=== PATIENT | male | born 1950 | race Caucasian/White ===

== ENCOUNTER 2024-10-03 20:42 | Inpatient (IN) ==
[2024-10-03 21:23] LABS: Basophils # (auto) 0.02 K/uL (0.00-0.20); Basophils % (auto) 0.3 %; Eosinophils # (auto) 0.08 K/uL (0.00-0.50); Eosinophils % (auto) 1.2 %; Hematocrit (blood only) 43.8 % (42.0-52.0); Immature Granulocytes # (auto) 0.02 K/uL (0.01-0.20); Immature Granulocytes % (auto) 0.3 %; Lymphocytes # (auto) 2.56 K/uL (1.20-3.40); Lymphocytes % (auto) 38.2 %; Mean Corpuscular Hgb Conc 34.2 g/dL (32.0-36.0); Mean Corpuscular Volume 90.5 fL (80.0-100.0); Mean Platelet Volume 9.6 fL (9.4-12.4); Monocytes # (auto) 1.01 K/uL (0.11-0.59); Monocytes % (auto) 15.1 %; Neutrophils # (auto) 3.02 K/uL (1.40-6.50); Neutrophils % (auto) 44.9 %; Platelet Count 164 K/uL (130-400); RDW Coefficient of Variation 12.3 % (11.5-14.5); RDW Standard Deviation 40.5 fL (36.4-46.3); Red Blood Count 4.84 M/uL (4.70-6.10); White Blood Count 6.71 K/ul (4.8-10.8)
[2024-10-03] MEDS: OPTIRAY 320 125ml IV ONE (21:26)
[2024-10-03 21:28] LABS: iSTAT Creatinine 0.8 mg/dl (0.6-1.3); iSTAT Hemoglobin 15.6 g/dl (14.0-18.0); iSTAT Ionized Calcium 1.19 mmol/l (1.12-1.32); iSTAT Potassium 3.9 mmol/L (3.3-5.0)
[2024-10-03 21:37] LABS: Albumin Globulin Ratio 1.2 (0.9-2); Albumin Level 4.7 gm/dl (3.4-5.0); BUN Creatinine Ratio 23.9 (10-20); Bilirubin,Total 0.6 mg/dl (0.2-1.0); Calcium 9.2 mg/dl (8.6-10.3); Creatinine Clr Calc Pharmacy 82.5 ml/min; Globulin 3.8 gm/dl (2.5-4.0); Magnesium 2.1 mg/dl (1.7-2.4); Total Protein 8.5 gm/dl (6.0-8.3)
[2024-10-03 21:45] LABS: Troponin I High Sensitivity 37.1 pg/ml (0-20)
[2024-10-03 21:50] LABS: INR 0.9 (0.9-1.1); Partial Thromboplastin Ratio 0.9; Partial Thromboplastin Time 24 Seconds (21-31); Prothrombin Time 9.9 Seconds (9.0-12.0)
--- NOTE | 2024-10-03 21:55 | CT Scan Report ---
Exam(s): CT HEAD Without Contrast EXAM: CT Head Without Intravenous Contrast CLINICAL HISTORY: neuro deficit, acute stroke suspected. TECHNIQUE: Axial computed tomography images of the head/brain without intravenous contrast. CTDI is 37.12 mGy and DLP is 624.41 mGy-cm. Automated exposure control was utilized for the study. A dose lowering technique was utilized adhering to the principles of ALARA. COMPARISON: No relevant prior studies available. FINDINGS: Brain: There are a few areas of decreased attenuation in the deep cerebral white matter consistent with mild small vessel ischemic/degenerative changes. The cerebral and cerebellar sulci are mildly prominent consistent with mild brain atrophy. No intracranial hemorrhage. No significant mass effect. No evidence for cortical infarct. Subcentimeter ovoid hypodense area in the inferior right basal ganglia is nonspecific but a presumed incidental enlarged perivascular space. Ventricles: Unremarkable. No ventriculomegaly. Bones/joints: Unremarkable. No acute fracture. Soft tissues: Unremarkable. Vasculature: Atherosclerotic disease. Sinuses: Unremarkable as visualized. No acute sinusitis. Mastoid air cells: Unremarkable as visualized. No mastoid effusion. IMPRESSION: No acute intracranial process identified. Communications: Call Doctor Stroke Electronically signed by: Mansoor Eisenberg MD 10/03/24 21:54 PM
--- NOTE | 2024-10-03 22:07 | CT Scan Report ---
Exam(s): CTA HEAD With Contrast IV Amt: 119ml EXAM: CT Head With Intravenous Contrast CLINICAL HISTORY: neuro deficit, acute stroke suspected. TECHNIQUE: Axial computed tomographic images of the head with intravenous contrast. CTDI is 20.76 mGy and DLP is 10.38 mGy-cm. Automated exposure control was utilized for the study. A dose lowering technique was utilized adhering to the principles of ALARA. CONTRAST: Patient received 119ml of IV contrast COMPARISON: No relevant prior studies available. FINDINGS: Right internal carotid artery: No acute findings. Intracranial segment is patent with no significant stenosis. No aneurysm. Right anterior cerebral artery: Unremarkable. No occlusion or significant stenosis. No aneurysm. Right middle cerebral artery: Unremarkable. No occlusion or significant stenosis. No aneurysm. Right posterior cerebral artery: Unremarkable. No occlusion or significant stenosis. No aneurysm. Right vertebral artery: Unremarkable as visualized. Left internal carotid artery: No acute findings. Intracranial segment is patent with no significant stenosis. No aneurysm. Left anterior cerebral artery: Unremarkable. No occlusion or significant stenosis. No aneurysm. Left middle cerebral artery: Unremarkable. No occlusion or significant stenosis. No aneurysm. Left posterior cerebral artery: Unremarkable. No occlusion or significant stenosis. No aneurysm. Left vertebral artery: Unremarkable as visualized. Basilar artery: Unremarkable. No occlusion or significant stenosis. No aneurysm. Brain: No abnormal parenchymal enhancement identified. IMPRESSION: Negative intracranial CTA examination. Communications: Call Doctor Stroke Electronically signed by: Mansoor Eisenberg MD 10/03/24 22:06 PM
--- NOTE | 2024-10-03 22:09 | CT Scan Report ---
Exam(s): CTA NECK With Contrast IV Amt: 119 ml optiray 320 EXAM: CT Neck With Intravenous Contrast CLINICAL HISTORY: neuro deficit, acute stroke suspected. TECHNIQUE: Routine carotid CT protocol was performed with intravenous contrast. NASCET criteria using the distal ICAs for comparison were used for evaluation of stenoses. CTDI is 12.22 mGy and DLP is 461.85 mGy-cm. Automated exposure control was utilized for the study. A dose lowering technique was utilized adhering to the principles of ALARA. CONTRAST: Patient received 119 ml optiray 320 of IV contrast COMPARISON: None. FINDINGS: VASCULATURE: Right common carotid artery: The right common carotid artery is tortuous but is patent without stenosis or occlusion. Right internal carotid artery: Minimal calcification of the bifurcation. Extracranial segment is patent with no occlusion or significant stenosis. No dissection. Right external carotid artery: Unremarkable. No occlusion. Right vertebral artery: Unremarkable. No occlusion or significant stenosis. No dissection. Left common carotid artery: Unremarkable. No occlusion or significant stenosis. No dissection. Left internal carotid artery: Minimal calcification of the bifurcation. Extracranial segment is patent with no occlusion or significant stenosis. No dissection. Left external carotid artery: Unremarkable. No occlusion. Left vertebral artery: Unremarkable. No occlusion or significant stenosis. No dissection. Brachiocephalic and subclavian arteries: There is a normal branching pattern of the proximal great vessels without ostial stenosis or occlusion. Aorta: The aortic arch is partially included and demonstrates no evidence for aneurysm or dissection. Atherosclerotic calcification. NECK: Bones/joints: Unremarkable. No acute fracture. Soft tissues: Unremarkable. Lung apices: Clear. CAROTID STENOSIS REFERENCE USING NASCET CRITERIA: % ICA stenosis = (1 - narrowest ICA diameter/diameter of distal cervical ICA) x 100. Mild - <50% stenosis. Moderate - 50-69% stenosis. Severe - 70-94% stenosis. Near occlusion - 95-99% stenosis. Occluded - 100% stenosis. IMPRESSION: Negative cervical CTA examination. No critical stenosis or occlusion. Communications: Call Doctor Stroke Electronically signed by: Mansoor Eisenberg MD 10/03/24 22:08 PM
--- NOTE | 2024-10-03 22:43 | XRay Report ---
Exam(s): XR CXR 1 VIEW EXAM: XR Chest, 1 View CLINICAL HISTORY: neuro deficit, acute stroke suspected. TECHNIQUE: Frontal view of the chest. COMPARISON: No relevant prior studies available. FINDINGS: Lungs: No focal consolidation. The pulmonary vasculature demonstrates no significant radiographic abnormality. Pleural space: Unremarkable. No pneumothorax. No large pleural effusion. Heart: Unremarkable. No cardiomegaly. Mediastinum: No significant abnormality identified. The trachea is midline. Bones/joints: Unremarkable. No acute fracture. IMPRESSION: No focal consolidation or acute cardiopulmonary process identified. Electronically signed by: Mansoor Eisenberg MD 10/03/24 22:42 PM
--- NOTE | 2024-10-03 22:59 | Emergency Department Note ---
History of Present Illness General Chief complaint: Eye Problems Stated complaint: EYE, STROKE WORK UP, SENT BY OPTHAMOLOGIST Time Seen by Provider: 10/03/24 20:54 History of Present Illness Provider complaint: Left eye vision loss Onset (ago): hour(s) (3.5) Location: eyes and left 74-year-old male presents to the emergency department after being evaluated by the poly area supervisor for stroke workup. Patient reports that at 5:30 PM he started not being able to see out of his left eye. Patient reports he can only see light out of his left eye. He states he went [facility] the [facility] and saw Dr. Monica Buckley. 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 On the note from her and states that the patient needs a stroke workup. Patient reports no other neurological complaints. No numbness or tingling no difficulty walking or speaking. No headaches. Home Medications Medication Instructions Recorded Confirmed Type albuterol sulfate 90 mcg/actuation 2 puff inhalation QID PRN 10/03/24 10/03/24 History aerosol inhaler Shortness Of Breath Or Wheezing amlodipine 10 mg tablet 10 mg PO DAILY 10/03/24 10/03/24 History aspirin 81 mg tablet,delayed 81 mg PO DAILY 10/03/24 10/03/24 History release atorvastatin 40 mg tablet 40 mg PO DAILY 10/03/24 10/03/24 History metoprolol succinate 25 mg 25 mg PO DAILY 10/03/24 10/03/24 History tablet,extended release 24 hr omega 2-irj-sdp-fish oil 1,200 mg 1 cap PO BID 10/03/24 10/03/24 History (144 mg-216 mg) capsule (Fish Oil) omeprazole 40 mg capsule,delayed 40 mg PO DAILYBB 10/03/24 10/03/24 History release Allergies Allergy/AdvReac Type Severity Reaction Status Date / Time No Known Allergies Allergy Unverified 10/03/24 22:52 Past Med/Surg History Problem List (Updated 10/03/24 @ 23:06 by Lionel Pederson MD) CRAO (central retinal artery occlusion) (Acute) Medical History GERD (gastroesophageal reflux disease) HTN (hypertension) HLD (hyperlipidemia) Surgical History No pertinent past surgical history Social History Smoking Status: Former smoker Tobacco Type: Cigarettes Preferred Language: [place]ian Feels Safe at Home: Yes Physical Exam Vital Signs Vital Signs - 24 hr 10/03/24 20:46 10/03/24 20:54 10/03/24 20:59 Temperature 36.5 C Temperature Source Temporal Artery Scan Pulse Rate 112 H 91 H Pulse Rate [Apical] 95 H Pulse Rhythm [Apical] Regular Pulse Strength [Apical] Normal Respiratory Rate 20 16 Respiratory Effort / Characteristics Non-Labored Spontaneous Non-Labored Spontaneous Respiratory Depth Normal Normal Respiratory Pattern Regular Blood Pressure 165/83 H Blood Pressure [Right Arm] 182/105 H Blood Pressure Mean 110 Blood Pressure Mean [Right Arm] 130 Blood Pressure Position [Right Arm] Sitting Pulse Oximetry 94 95 Oxygen Delivery Method Room Air Room Air Sepsis Recent Fever Within 48 Hours No Sepsis New/Unexplained Change in Mental Status N/A Sepsis Action Taken by Nursing No Action Required Physical Exam HENT: Exam performed. -Head: Normocephalic and atraumatic. -Right Ear: External ear normal. No mastoid erythema -Left Ear: External ear normal. No mastoid erythema -Mouth/Throat: The oropharynx is clear and moist. No trismus in the jaw. No dental abscesses or uvula swelling. No oropharyngeal exudate or tonsillar abscesses. EYES: Left pupil is dilated. Funduscopic exam of the left showed a pale retina. No adams red spot. No retinal hemorrhages. Right eye: No AV nicking or papilledema. No pale retina. NECK: Normal range of motion. Neck supple. No JVD present. No rigidity. No tracheal deviation and normal range of motion present. CV: Normal rate, regular rhythm, normal heart sounds and intact distal pulses. There is no peripheral edema. Palpable radial pulses bue. PULM/CHEST: Effort normal and breath sounds normal. No respiratory distress. No stridor. no wheezes. no rales. MUSC/SKEL: Normal range of motion. There is no peripheral edema, tenderness or deformity. NEURO: alert and oriented to person, place, and time. normal strength. No cranial nerve deficit or sensory deficit. Coordination and gait normal. GCS eye subscore is 4. GCS verbal subscore is 5. GCS motor subscore is 6. Cerebellar tests wnl. No clonus. SKIN: Skin is warm and dry. not diaphoretic. PSYCH:normal mood and affect. Behavior is normal. Judgment and thought content normal. Course Course 2053: The patient was evaluated in room B2. A complete history and physical exam was performed Cardiac monitoring: An order was placed for continuous cardiac monitoring. The monitor shows a rate of 90 with sinus rhythm interpreted by me 2107: Spoke with Dr. Rush on-call ophthalmology. He states that while the patient might need a stroke workup including visualization of his carotid arteries and a cardiac echo, he states that that does not need to be done emergently. He states that if the patient's CAT scans are negative and blood work is negative then he can follow-up outpatient for cardiac echo. 2302: Vital signs stable. Patient not reporting any chest pain Diffley breathing. CT of the head CT angio head and neck are negative. Labs are unremarkable with exception of a high-sensitivity troponin that is elevated at 37.1. Patient not reporting any chest pain or difficulty breathing. Given patient's elevated high-sensitivity troponin and symptoms, etc. patient should be admitted for cardiac echo and further stroke workup. After long discussion with the patient and family member at bedside they are in agreement. [facility] who agreed to evaluate the patient for admission. Administered Medications Discontinued Medications Ioversol (Optiray 320 125ml) 119 ml IV ONCE ONE Stop: 10/03/24 21:26 Last Admin: 10/03/24: Dose: 119 ml Documented By: VIMAL Medical Decision Making Laboratory Data Attestation: I reviewed the patient's lab results. 10/03/24 21:05 10/03/24 21:05 Lab Results 10/03/24 10/03/24 Range/Units 21:05 21:16 WBC 6.71 (4.8-10.8) K/ul RBC 4.84 (4.70-6.10) M/uL Hgb 15.0 (14.0-18.0) g/dl POC Hgb 15.6 (14.0-18.0) g/dl Hct 43.8 (42.0-52.0) % POC Hct 46 (42-52) % MCV 90.5 (80.0-100.0) fL MCH 31.0 (25.0-34.0) pg MCHC 34.2 (32.0-36.0) g/dL RDW Std Deviation 40.5 (36.4-46.3) fL RDW Coeff of Sergio 12.3 (11.5-14.5) % Plt Count 164 (130-400) K/uL MPV 9.6 (9.4-12.4) fL Immature Gran % (Auto) 0.3 % Neut % (Auto) 44.9 % Lymph % (Auto) 38.2 % Boone % (Auto) 15.1 % Eos % (Auto) 1.2 % Baso % (Auto) 0.3 % Neut # (Auto) 3.02 (1.40-6.50) K/uL Lymph # (Auto) 2.56 (1.20-3.40) K/uL Boone # (Auto) 1.01 H (0.11-0.59) K/uL Eos # (Auto) 0.08 (0.00-0.50) K/uL Baso # (Auto) 0.02 (0.00-0.20) K/uL Immature Gran # (Auto) 0.02 (0.01-0.20) K/uL PT 9.9 (9.0-12.0) Seconds INR 0.9 (0.9-1.1) APTT 24 (21-31) Seconds PTT Ratio 0.9 POC Sodium 140 (135-144) mmol/L Sodium 138 (136-145) mmol/L POC Potassium 3.9 (3.3-5.0) mmol/L Potassium 4.0 (3.5-5.1) mmol/L POC Chloride 105 (101-112) mmol/L Chloride 104 (98-107) mmol/L Carbon Dioxide 26 (21-32) mmol/L POC Total CO2 26 (24-31) mmol/L Anion Gap 8 (3-11) POC Anion Gap 14.0 L (16-25) mmol/L POC BUN 21 H (7-18) mg/dl BUN 21 (6-23) mg/dl Creatinine 0.88 (0.6-1.4) mg/dl POC Creatinine 0.8 (0.6-1.3) mg/dl Est Cr Clr Drug Dosing 82.5 ml/min eGFR 89.12 BUN/Creatinine Ratio 23.9 H (10-20) Glucose 100 H (70-99(Fasting)) mg/dl POC Glucose (other) 99 (70-99) mg/dl Calcium 9.2 (8.6-10.3) mg/dl POC Ioniz Calcium Paco 1.19 (1.12-1.32) mmol/l Magnesium 2.1 (1.7-2.4) mg/dl Total Bilirubin 0.6 (0.2-1.0) mg/dl AST 32 (13-39) U/L ALT 29 (7-52) U/L Alkaline Phosphatase 77 (34-104) U/L Troponin I High Sens 37.1 H (0-20) pg/ml Total Protein 8.5 H (6.0-8.3) gm/dl Albumin 4.7 (3.4-5.0) gm/dl Globulin 3.8 (2.5-4.0) gm/dl Albumin/Globulin Ratio 1.2 (0.9-2) Imaging Data Attestation: I personally reviewed and interpreted this imaging study as follows: My Impression: Chest x-ray negative. Airway clear. No pneumothorax. No consolidation. No cardiomegaly or cephalization.. No free air under the diaphragm. No fractures of the skeletal structures. Radiologist's Impression: Chest X-Ray 10/03/24 20:59 Exam(s): XR CXR 1 VIEW EXAM: XR Chest, 1 View CLINICAL HISTORY: neuro deficit, acute stroke suspected. TECHNIQUE: Frontal view of the chest. COMPARISON: No relevant prior studies available. FINDINGS: Lungs: No focal consolidation. The pulmonary vasculature demonstrates no significant radiographic abnormality. Pleural space: Unremarkable. No pneumothorax. No large pleural effusion. Heart: Unremarkable. No cardiomegaly. Mediastinum: No significant abnormality identified. The trachea is midline. Bones/joints: Unremarkable. No acute fracture. IMPRESSION: No focal consolidation or acute cardiopulmonary process identified. Electronically signed by: Mansoor Eisenberg MD 10/03/24 22:[address] 10/03/24 20:59 CR Exam(s): CT HEAD Without Contrast EXAM: CT Head Without Intravenous Contrast CLINICAL HISTORY: neuro deficit, acute stroke suspected. TECHNIQUE: Axial computed tomography images of the head/brain without intravenous contrast. CTDI is 37.12 mGy and DLP is 624.41 mGy-cm. Automated exposure control was utilized for the study. A dose lowering technique was utilized adhering to the principles of ALARA. COMPARISON: No relevant prior studies available. FINDINGS: Brain: There are a few areas of decreased attenuation in the deep cerebral white matter consistent with mild small vessel ischemic/degenerative changes. The cerebral and cerebellar sulci are mildly prominent consistent with mild brain atrophy. No intracranial hemorrhage. No significant mass effect. No evidence for cortical infarct. Subcentimeter ovoid hypodense area in the inferior right basal ganglia is nonspecific but a presumed incidental enlarged perivascular space. Ventricles: Unremarkable. No ventriculomegaly. Bones/joints: Unremarkable. No acute fracture. Soft tissues: Unremarkable. Vasculature: Atherosclerotic disease. Sinuses: Unremarkable as visualized. No acute sinusitis. Mastoid air cells: Unremarkable as visualized. No mastoid effusion. IMPRESSION: No acute intracranial process identified. Communications: Call Doctor Stroke Electronically signed by: Mansoor Eisenberg MD 10/03/24 21:54 PM Head CTA 10/03/24 20:59 CR Exam(s): CTA HEAD With Contrast IV Amt: 119ml EXAM: CT Head With Intravenous Contrast CLINICAL HISTORY: neuro deficit, acute stroke suspected. TECHNIQUE: Axial computed tomographic images of the head with intravenous contrast. CTDI is 20.76 mGy and DLP is 10.38 mGy-cm. Automated exposure control was utilized for the study. A dose lowering technique was utilized adhering to the principles of ALARA. CONTRAST: Patient received 119ml of IV contrast COMPARISON: No relevant prior studies available. FINDINGS: Right internal carotid artery: No acute findings. Intracranial segment is patent with no significant stenosis. No aneurysm. Right anterior cerebral artery: Unremarkable. No occlusion or significant stenosis. No aneurysm. Right middle cerebral artery: Unremarkable. No occlusion or significant stenosis. No aneurysm. Right posterior cerebral artery: Unremarkable. No occlusion or significant stenosis. No aneurysm. Right vertebral artery: Unremarkable as visualized. Left internal carotid artery: No acute findings. Intracranial segment is patent with no significant stenosis. No aneurysm. Left anterior cerebral artery: Unremarkable. No occlusion or significant stenosis. No aneurysm. Left middle cerebral artery: Unremarkable. No occlusion or significant stenosis. No aneurysm. Left posterior cerebral artery: Unremarkable. No occlusion or significant stenosis. No aneurysm. Left vertebral artery: Unremarkable as visualized. Basilar artery: Unremarkable. No occlusion or significant stenosis. No aneurysm. Brain: No abnormal parenchymal enhancement identified. IMPRESSION: Negative intracranial CTA examination. Communications: Call Doctor Stroke Electronically signed by: Mansoor Eisenberg MD 10/03/24 22:06 PM Neck CTA 10/03/24 20:59 CR Exam(s): CTA NECK With Contrast IV Amt: 119 ml optiray 320 EXAM: CT Neck With Intravenous Contrast CLINICAL HISTORY: neuro deficit, acute stroke suspected. TECHNIQUE: Routine carotid CT protocol was performed with intravenous contrast. NASCET criteria using the distal ICAs for comparison were used for evaluation of stenoses. CTDI is 12.22 mGy and DLP is 461.85 mGy-cm. Automated exposure control was utilized for the study. A dose lowering technique was utilized adhering to the principles of ALARA. CONTRAST: Patient received 119 ml optiray 320 of IV contrast COMPARISON: None. FINDINGS: VASCULATURE: Right common carotid artery: The right common carotid artery is tortuous but is patent without stenosis or occlusion. Right internal carotid artery: Minimal calcification of the bifurcation. Extracranial segment is patent with no occlusion or significant stenosis. No dissection. Right external carotid artery: Unremarkable. No occlusion. Right vertebral artery: Unremarkable. No occlusion or significant stenosis. No dissection. Left common carotid artery: Unremarkable. No occlusion or significant stenosis. No dissection. Left internal carotid artery: Minimal calcification of the bifurcation. Extracranial segment is patent with no occlusion or significant stenosis. No dissection. Left external carotid artery: Unremarkable. No occlusion. Left vertebral artery: Unremarkable. No occlusion or significant stenosis. No dissection. Brachiocephalic and subclavian arteries: There is a normal branching pattern of the proximal great vessels without ostial stenosis or occlusion. Aorta: The aortic arch is partially included and demonstrates no evidence for aneurysm or dissection. Atherosclerotic calcification. NECK: Bones/joints: Unremarkable. No acute fracture. Soft tissues: Unremarkable. Lung apices: Clear. CAROTID STENOSIS REFERENCE USING NASCET CRITERIA: % ICA stenosis = (1 - narrowest ICA diameter/diameter of distal cervical ICA) x 100. Mild - <50% stenosis. Moderate - 50-69% stenosis. Severe - 70-94% stenosis. Near occlusion - 95-99% stenosis. Occluded - 100% stenosis. IMPRESSION: Negative cervical CTA examination. No critical stenosis or occlusion. Communications: Call Doctor Stroke Electronically signed by: Mansoor Eisenberg MD 10/03/24 22:08 PM ECG Data Attestation: I personally reviewed and interpreted this ECG as follows: Rate (beats per minute): 89 Rhythm: + normal sinus ECG Intervals/blocks: + Normal QRS, + Normal NM and + Normal QT-c ECG ST segments: + Normal ST segments [facility] Narrative 2053: The patient was evaluated in room B2. A complete history and physical exam was performed Cardiac monitoring: An order was placed for continuous cardiac monitoring. The monitor shows a rate of 90 with sinus rhythm interpreted by me 2107: Spoke with Dr. Rush on-call ophthalmology. He states that while the patient might need a stroke workup including visualization of his carotid arteries and a cardiac echo, he states that that does not need to be done emergently. He states that if the patient's CAT scans are negative and blood work is negative then he can follow-up outpatient for cardiac echo. 2302: Vital signs stable. Patient not reporting any chest pain Diffley breathing. CT of the head CT angio head and neck are negative. Labs are unremarkable with exception of a high-sensitivity troponin that is elevated at 37.1. Patient not reporting any chest pain or difficulty breathing. Given patient's elevated high-sensitivity troponin and symptoms, etc. patient should be admitted for cardiac echo and further stroke workup. After long discussion with the patient and family member at bedside they are in agreement. Discussed with Dr. Kiran Sexton hospitalist who agreed to evaluate the patient for admission. Impression & Plan CRAO (central retinal artery occlusion) Discharge Plan Visit Data Chief Complaint: Eye Problems Stated Complaint: EYE, STROKE WORK UP, SENT BY OPTHAMOLOGIST ED Provider: Lionel Pederson Discharge Problem: CRAO (central retinal artery occlusion) Patient Disposition: Being Evaluated by Hospitalist Forms Stand Alone Forms: My [facility] [employer] [facility] Prescriptions Prescriptions: No Action atorvastatin 40 mg tablet 40 mg PO DAILY omeprazole 40 mg capsule,delayed release(DR/EC) 40 mg PO DAILYBB metoprolol succinate 25 mg tablet extended release 24 hr 25 mg PO DAILY albuterol sulfate 90 mcg/actuation HFA aerosol inhaler 2 puff INHALATION QID PRN (Reason: Shortness Of Breath Or Wheezing) aspirin [Aspirin Low-Strength] 81 mg Tablet,Delayed Release (Dr/Ec) 81 mg PO DAILY amlodipine 10 mg tablet 10 mg PO DAILY omega 2-ygg-ego-fish oil [Fish Oil] 1,200 (144-216) mg Capsule 1 cap PO BID Referrals Referrals: Marqusi Parish D.O. [Primary Care Provider] - Discharge Problem: CRAO (central retinal artery occlusion) Qualifiers: Laterality: left Qualified Code(s): H34.12 - Central retinal artery occlusion, left eye
[2024-10-03] MEDS: ASPIRIN 81 MG CHEW PO STA (23:13)
--- NOTE | 2024-10-04 01:07 | History & Physical Report ---
Date of Service October 04, 2024 Assessment & Plan (1) CRAO (central retinal artery occlusion): Plan: 74-year-old male with past medical history significant for hypertension, glaucoma, hyperlipidemia, GERD, rheumatoid arthritis comes because of left eye vision loss on 10/03/2024 5:30 p.m. He went to eye doctor and had dilated eye exam and diagnosed with left-sided central retinal artery occlusion and advised to come to the ER for stroke workup. ER spoke with ophthalmology and plan was if CT scans are negative can follow as outpatient with cardiac echo but his troponins came back positive. Patient currently resting comfortably. Denies any headache. Denies dizziness. Denies any eye pain. No earache. No runny nose. No sore throat. No cough. No fevers. No chest pain. No shortness of breath. No nausea. No abdominal pain. Eating and drinking okay. No abdominal pain. Normal bowel and bladder movements. Says he could not see anything from the left eye. Right eye vision is okay. Central retinal artery occlusion Left eye vision loss CT head, CTA head and neck unremarkable Will follow MRI head and echo Stroke protocol Patient received full dose aspirin in the ER Continue home aspirin and statin Follow lipid profile and HbA1c levels Consult neurology and ophthalmology in a.m. Monitor on telemetry Elevated troponin Denies any chest pain or shortness of breath EKG Q waves in inferior leads Will follow serial enzymes and echo and cardiology consult in a.m. Close monitor Alcoholism Drinks 3-4 beers daily IV thiamine and folic acid alcohol withdrawal protocol IV Ativan as needed Close monitor Hypertension On amlodipine and metoprolol succinate Elevated IV labetalol as needed Will monitor History of rheumatoid arthritis On Enbrel GERD On omeprazole Hyperlipidemia On statin DVT prophylaxis SCDs for now Disposition Telemetry Full code. History of Present Illness Chief Complaint: Left eye vision loss Primary Care Provider: Marquis Parish 74-year-old male with past medical history significant for hypertension, glaucoma, hyperlipidemia, GERD, rheumatoid arthritis comes because of left eye vision loss on 10/03/2024 5:30 p.m. He went to eye doctor and had dilated eye exam and diagnosed with left-sided central retinal artery occlusion and advised to come to the ER for stroke workup. ER spoke with ophthalmology and plan was if CT scans are negative can follow as outpatient with cardiac echo but his troponins came back positive. Patient currently resting comfortably. Denies any headache. Denies dizziness. Denies any eye pain. No earache. No runny nose. No sore throat. No cough. No fevers. No chest pain. No shortness of breath. No nausea. No abdominal pain. Eating and drinking okay. No abdominal pain. Normal bowel and bladder movements. Says he could not see anything from the left eye. Right eye vision is okay. Past medical history. As mentioned above Past surgical history. Colonoscopy. Appendectomy. Bilateral repair of hammertoe. Bilateral knee replacements. Social history. . Quit smoking 2004. Smoked from 1961 to 2004 about 1 pack a day. Drinks alcohol 4 beers daily. No drug use. Family history. Father had heart attack. Mother had hypertension and heart disease and glaucoma. Allergies Allergy/AdvReac Type Severity Reaction Status Date / Time No Known Allergies Allergy Unverified 10/03/24 22:52 Home Medications Medication Instructions Recorded Confirmed Type albuterol sulfate 90 mcg/actuation 2 puff inhalation QID PRN 10/03/24 10/03/24 History aerosol inhaler Shortness Of Breath Or Wheezing amlodipine 10 mg tablet 10 mg PO DAILY 10/03/24 10/03/24 History aspirin 81 mg tablet,delayed 81 mg PO DAILY 10/03/24 10/03/24 History release atorvastatin 40 mg tablet 40 mg PO DAILY 10/03/24 10/03/24 History metoprolol succinate 25 mg 25 mg PO DAILY 10/03/24 10/03/24 History tablet,extended release 24 hr omega [id number]-[id number]-fish oil 1,200 mg 1 cap PO BID 10/03/24 10/03/24 History (144 mg-216 mg) capsule (Fish Oil) omeprazole 40 mg capsule,delayed 40 mg PO DAILYBB 10/03/24 10/03/24 History release etanercept 50 mg/mL (1 mL) 50 mg subcut WK 10/04/24 10/04/24 History subcutaneous syringe (Enbrel) fexofenadine 180 mg tablet 180 mg PO DAILY 10/04/24 10/04/24 History Past Med/Surg History Problem List (Updated 10/03/24 @ 23:06 by Lionel Pederson MD) CRAO (central retinal artery occlusion) (Acute) Medical History GERD (gastroesophageal reflux disease) HTN (hypertension) HLD (hyperlipidemia) Surgical History No pertinent past surgical history Social History Smoking Status: Former smoker Tobacco Type: Cigarettes Hx Alcohol Use: Yes Alcohol type: beer Hx Substance Use: No Preferred Language: Indonesian Communication Ability: Effective Coffin Maker Required: No Beliefs That Will Affect Care: None Current Living Situation: Spouse Feels Safe at Home: Yes Safety Concerns: Feels Safe At This Time Assistive Devices: Denture - Upper, Glasses and Hearing Aid - Bilateral Review of Systems Review of Systems: All systems reviewed & are unremarkable except as noted in HPI & below Physical Exam Physical Exam: General- Not in distress Head- atraumatic Eyes- PERRL, EOMI, Very blurred vision left eye ENT- oropharynx clear Neck- supple, no JVD. Lungs- clear to auscultation no wheezing or crackles Heart- regular rate and rhythm; no murmur, no gallop. Abdomen- normal bowel sounds, soft, nontender, no distension Extremities- no pretibial edema, no erythema seen Neuro- alert, oriented PERRL, EOMI,no facial palsy;Left eye visison loss, no dysarthria; motor 5/5 bilaterally; no pronator drift, coordination of movements ok. sensations intact Results & Data Results & Data Vital Signs (Past 12 Hours) Vital Signs Temp Pulse Pulse Resp BP BP Pulse Ox 10/04/24 00:51 78 10/03/24 20:59 95 H 16 182/105 H 95 10/03/24 20:54 91 H 10/03/24 20:46 36.5 C 112 H 20 165/83 H 94 O2 Del Method 10/04/24 00:51 10/03/24 20:59 Room Air 10/03/24 20:54 10/03/24 20:46 Room Air Diagnostic Findings Laboratory Results WBC 6.71 K/ul (4.8-10.8) 10/03/24 21:05 RBC 4.84 M/uL (4.70-6.10) 10/03/24 21:05 Hgb 15.0 g/dl (14.0-18.0) 10/03/24 21:05 POC Hgb 15.6 g/dl (14.0-18.0) 10/03/24 21:16 Hct 43.8 % (42.0-52.0) 10/03/24 21:05 POC Hct 46 % (42-52) 10/03/24 21:16 MCV 90.5 fL (80.0-100.0) 10/03/24 21:05 MCH 31.0 pg (25.0-34.0) 10/03/24 21:05 MCHC 34.2 g/dL (32.0-36.0) 10/03/24 21:05 RDW Std Deviation 40.5 fL (36.4-46.3) 10/03/24 21:05 RDW Coeff of Sergio 12.3 % (11.5-14.5) 10/03/24 21:05 Plt Count 164 K/uL (130-400) 10/03/24 21:05 MPV 9.6 fL (9.4-12.4) 10/03/24 21:05 Immature Gran % (Auto) 0.3 % 10/03/24 21:05 Neut % (Auto) 44.9 % 10/03/24 21:05 Lymph % (Auto) 38.2 % 10/03/24 21:05 [place] % (Auto) 15.1 % 10/03/24 21:05 Eos % (Auto) 1.2 % 10/03/24 21:05 Baso % (Auto) 0.3 % 10/03/24 21:05 Neut # (Auto) 3.02 K/uL (1.40-6.50) 10/03/24 21:05 Lymph # (Auto) 2.56 K/uL (1.20-3.40) 10/03/24 21:05 [place] # (Auto) 1.01 K/uL (0.11-0.59) H 10/03/24 21:05 Eos # (Auto) 0.08 K/uL (0.00-0.50) 10/03/24 21:05 Baso # (Auto) 0.02 K/uL (0.00-0.20) 10/03/24 21:05 Immature Gran # (Auto) 0.02 K/uL (0.01-0.20) 10/03/24 21:05 PT 9.9 Seconds (9.0-12.0) 10/03/24 21:05 INR 0.9 (0.9-1.1) 10/03/24 21:05 APTT 24 Seconds (21-31) 10/03/24 21:05 PTT Ratio 0.9 10/03/24 21:05 POC Sodium 140 mmol/L (135-144) 10/03/24 21:16 Sodium 138 mmol/L (136-145) 10/03/24 21:05 POC Potassium 3.9 mmol/L (3.3-5.0) 10/03/24 21:16 Potassium 4.0 mmol/L (3.5-5.1) 10/03/24 21:05 POC Chloride 105 mmol/L (101-112) 10/03/24 21:16 Chloride 104 mmol/L (98-107) 10/03/24 21:05 Carbon Dioxide 26 mmol/L (21-32) 10/03/24 21:05 POC Total CO2 26 mmol/L (24-31) 10/03/24 21:16 Anion Gap 8 (3-11) 10/03/24 21:05 POC Anion Gap 14.0 mmol/L (16-25) L 10/03/24 21:16 POC BUN 21 mg/dl (7-18) H 10/03/24 21:16 BUN 21 mg/dl (6-23) 10/03/24 21:05 Creatinine 0.88 mg/dl (0.6-1.4) 10/03/24 21:05 POC Creatinine 0.8 mg/dl (0.6-1.3) 10/03/24 21:16 Est Cr Clr Drug Dosing 82.5 ml/min 10/03/24 21:05 eGFR 89.12 10/03/24 21:05 BUN/Creatinine Ratio 23.9 (10-20) H 10/03/24 21:05 Glucose 100 mg/dl (70-99(Fasting)) H 10/03/24 21:05 POC Glucose (other) 99 mg/dl (70-99) 10/03/24 21:16 Calcium 9.2 mg/dl (8.6-10.3) 10/03/24 21:05 POC Ioniz Calcium Paco 1.19 mmol/l (1.12-1.32) 10/03/24 21:16 Magnesium 2.1 mg/dl (1.7-2.4) 10/03/24 21:05 Total Bilirubin 0.6 mg/dl (0.2-1.0) 10/03/24 21:05 AST 32 U/L (13-39) 10/03/24 21:05 ALT 29 U/L (7-52) 10/03/24 21:05 Alkaline Phosphatase 77 U/L (34-104) 10/03/24 21:05 Troponin I High Sens 115.2 pg/ml (0-20) H* D 10/03/24 22:49 Total Protein 8.5 gm/dl (6.0-8.3) H 10/03/24 21:05 Albumin 4.7 gm/dl (3.4-5.0) 10/03/24 21:05 Globulin 3.8 gm/dl (2.5-4.0) 10/03/24 21:05 Albumin/Globulin Ratio 1.2 (0.9-2) 10/03/24 21:05 Blood Type O Positive 10/03/24 22:29 Antibody Screen NEGATIVE 10/03/24 22:29 Impressions Chest X-Ray 10/03/24 20:59 Exam(s): XR CXR 1 VIEW EXAM: XR Chest, 1 View CLINICAL HISTORY: neuro deficit, acute stroke suspected. TECHNIQUE: Frontal view of the chest. COMPARISON: No relevant prior studies available. FINDINGS: Lungs: No focal consolidation. The pulmonary vasculature demonstrates no significant radiographic abnormality. Pleural space: Unremarkable. No pneumothorax. No large pleural effusion. Heart: Unremarkable. No cardiomegaly. Mediastinum: No significant abnormality identified. The trachea is midline. Bones/joints: Unremarkable. No acute fracture. IMPRESSION: No focal consolidation or acute cardiopulmonary process identified. Electronically signed by: Mansoor Eisenberg MD 10/03/24 22:[address] 10/03/24 20:59 CR Exam(s): CT HEAD Without Contrast EXAM: CT Head Without Intravenous Contrast CLINICAL HISTORY: neuro deficit, acute stroke suspected. TECHNIQUE: Axial computed tomography images of the head/brain without intravenous contrast. CTDI is 37.12 mGy and DLP is 624.41 mGy-cm. Automated exposure control was utilized for the study. A dose lowering technique was utilized adhering to the principles of ALARA. COMPARISON: No relevant prior studies available. FINDINGS: Brain: There are a few areas of decreased attenuation in the deep cerebral white matter consistent with mild small vessel ischemic/degenerative changes. The cerebral and cerebellar sulci are mildly prominent consistent with mild brain atrophy. No intracranial hemorrhage. No significant mass effect. No evidence for cortical infarct. Subcentimeter ovoid hypodense area in the inferior right basal ganglia is nonspecific but a presumed incidental enlarged perivascular space. Ventricles: Unremarkable. No ventriculomegaly. Bones/joints: Unremarkable. No acute fracture. Soft tissues: Unremarkable. Vasculature: Atherosclerotic disease. Sinuses: Unremarkable as visualized. No acute sinusitis. Mastoid air cells: Unremarkable as visualized. No mastoid effusion. IMPRESSION: No acute intracranial process identified. Communications: Call Doctor Stroke Electronically signed by: Mansoor Eisenberg MD 10/03/24 21:54 PM Head CTA 10/03/24 20:59 CR Exam(s): CTA HEAD With Contrast IV Amt: 119ml EXAM: CT Head With Intravenous Contrast CLINICAL HISTORY: neuro deficit, acute stroke suspected. TECHNIQUE: Axial computed tomographic images of the head with intravenous contrast. CTDI is 20.76 mGy and DLP is 10.38 mGy-cm. Automated exposure control was utilized for the study. A dose lowering technique was utilized adhering to the principles of ALARA. CONTRAST: Patient received 119ml of IV contrast COMPARISON: No relevant prior studies available. FINDINGS: Right internal carotid artery: No acute findings. Intracranial segment is patent with no significant stenosis. No aneurysm. Right anterior cerebral artery: Unremarkable. No occlusion or significant stenosis. No aneurysm. Right middle cerebral artery: Unremarkable. No occlusion or significant stenosis. No aneurysm. Right posterior cerebral artery: Unremarkable. No occlusion or significant stenosis. No aneurysm. Right vertebral artery: Unremarkable as visualized. Left internal carotid artery: No acute findings. Intracranial segment is patent with no significant stenosis. No aneurysm. Left anterior cerebral artery: Unremarkable. No occlusion or significant stenosis. No aneurysm. Left middle cerebral artery: Unremarkable. No occlusion or significant stenosis. No aneurysm. Left posterior cerebral artery: Unremarkable. No occlusion or significant stenosis. No aneurysm. Left vertebral artery: Unremarkable as visualized. Basilar artery: Unremarkable. No occlusion or significant stenosis. No aneurysm. Brain: No abnormal parenchymal enhancement identified. IMPRESSION: Negative intracranial CTA examination. Communications: Call Doctor Stroke Electronically signed by: Mansoor Eisenberg MD 10/03/24 22:06 PM Neck CTA 10/03/24 20:59 CR Exam(s): CTA NECK With Contrast IV Amt: 119 ml optiray 320 EXAM: CT Neck With Intravenous Contrast CLINICAL HISTORY: neuro deficit, acute stroke suspected. TECHNIQUE: Routine carotid CT protocol was performed with intravenous contrast. NASCET criteria using the distal ICAs for comparison were used for evaluation of stenoses. CTDI is 12.22 mGy and DLP is 461.85 mGy-cm. Automated exposure control was utilized for the study. A dose lowering technique was utilized adhering to the principles of ALARA. CONTRAST: Patient received 119 ml optiray 320 of IV contrast COMPARISON: None. FINDINGS: VASCULATURE: Right common carotid artery: The right common carotid artery is tortuous but is patent without stenosis or occlusion. Right internal carotid artery: Minimal calcification of the bifurcation. Extracranial segment is patent with no occlusion or significant stenosis. No dissection. Right external carotid artery: Unremarkable. No occlusion. Right vertebral artery: Unremarkable. No occlusion or significant stenosis. No dissection. Left common carotid artery: Unremarkable. No occlusion or significant stenosis. No dissection. Left internal carotid artery: Minimal calcification of the bifurcation. Extracranial segment is patent with no occlusion or significant stenosis. No dissection. Left external carotid artery: Unremarkable. No occlusion. Left vertebral artery: Unremarkable. No occlusion or significant stenosis. No dissection. Brachiocephalic and subclavian arteries: There is a normal branching pattern of the proximal great vessels without ostial stenosis or occlusion. Aorta: The aortic arch is partially included and demonstrates no evidence for aneurysm or dissection. Atherosclerotic calcification. NECK: Bones/joints: Unremarkable. No acute fracture. Soft tissues: Unremarkable. Lung apices: Clear. CAROTID STENOSIS REFERENCE USING NASCET CRITERIA: % ICA stenosis = (1 - narrowest ICA diameter/diameter of distal cervical ICA) x 100. Mild - <50% stenosis. Moderate - 50-69% stenosis. Severe - 70-94% stenosis. Near occlusion - 95-99% stenosis. Occluded - 100% stenosis. IMPRESSION: Negative cervical CTA examination. No critical stenosis or occlusion. Communications: Call Doctor Stroke Electronically signed by: Mansoor Eisenberg MD 10/03/24 22:08 PM ECG Additional Comments: ECG. Normal sinus rhythm rate of 89. Q waves in inferior leads. QTc 445. Code Status & VTE Plan VTE Prophylaxis Plan VTE Prophylaxis will be ordered: Yes (1) CRAO (central retinal artery occlusion) Laterality: left Qualified Code(s): H34.12 - Central retinal artery occlusion, left eye
--- OUTSIDE RECORDS SUMMARY | 2024-10-04 02:04 | External Medical Summary | Summary of Care ---
Author Name Unknown Organization [facility] Ambulatory Address [address] [place] [address] Phone Care Team Providers Care Gunsmith Apprentice Name Role Phone Ivanna Ortega AUD Unavailable + [phone] ProviderLove MD Unavailable UnavailJami Strickland PA-C Unavailable [phone] Kenroy Rodriguez DO Unavailable [phone] Jacqueline Gutierrez PA-C Unavailable + Camelia Flor DO Unavailable [phone] Anh Saldivar PA-C Unavailable [phone] Tech, Ent Audio Unavailable Unavailable Munira Medina AUD Unavailable Unavailable Doug Moulton AUD Unavailable + [phone] Provider, Generic External Data Unavailable Unavailable Tristian SotoC Primary Care Provider [phone] Nabil Ackerman MD Unavailable [phone] None Unavailable Unavailable Ana Negro AUD Unavailable [phone] Provider, Historical Unavailable Unavailable José Miguel CherryC Unavailable [phone] Source Comments This information has been disclosed to you from records protected by federal confidentiality rules (42 CFR part 2). The federal rules prohibit you from making any further disclosure of information inthis record that identifies a patient as having or having had a substance use disorder either directly, by reference to publicly available information, or through verification of such identification by another person unless further disclosure is expressly permitted by the written consent of the individual whose information is being disclosed or as otherwise permitted by 42 CFR part 2. A general authorization for the release of medical or other information is NOT sufficient for this purpose (seesection 2.31). The federal rules restrict any use of the information to investigate or prosecute with regard to a crime any patient with a substance use disorder, except as provided at sections 2.12(c)(5) and 2.65.[facility] Ambulatory Reason for Visit * Reason Comments Shortness Of Breath Encounter Details Date Type Department Care Team (Latest Contact Info) Description 07/31/2024 8:00 AM EDT Office Visit Family [facility] [place] [address] [place] [address] Instrument Repair Technician: Clari Altamirano Colby J, PA-C [address] [place] [address] Dyspnea on exertion (Primary Dx); Essential hypertension; Mixed hyperlipidemia Allergies Active Allergy Reactions Criticality Noted Date Comments Piroxicam Rash 05/21/2014 documented as of this encounter (statuses as of 07/31/2024) Medications Medication Sig Dispensed Refills Start Date End Date Status folic acid/multivit-min/lut ein (CENTRUM SILVER ORAL) Take 1 tablet by mouth daily Active aspirin (ADULT LOW DOSE ASPIRIN) 81 mg oral tablet Take 1 tablet by mouth daily Active FISH OIL - EPA/DHA (OMEGA 3) 1,200 mg oral capsule Take 1 capsule by mouth daily Active fexofenadine (DAVID) 180 mg oral tablet Take 180 mg by mouth daily As needed during allergy season, he has been off this for 2 weeks Active etanercept (ENBREL) 50 mg/mL (1 mL) subcutaneous injection Inject 1 mL into the skin once a week 4 mL 6 08/07/2022 Active metoprolol succinate (TOPROL-XL) 25 mg oral extended-release tablet Take 1 tablet by mouth daily 90 tablet 3 02/01/2024 Active atorvastatin (LIPITOR) 40 mg oral tablet TAKE ONE TABLET BY MOUTH EVERY DAY 90 tablet 1 03/04/2024 Active omeprazole (PRILOSEC) 40 mg oral delayed-release capsule TAKE ONE CAPSULE BY MOUTH EVERY DAY BEFORE A MEAL 90 capsule 1 06/27/2024 Active amLODIPine (NORVASC) 10 mg oral tablet TAKE ONE TABLET BY MOUTH EVERY DAY 90 tablet 1 07/05/2024 Active albuterol 90 MCG inhl Take 2 puffs 4 times a day as needed 1 each 3 07/31/2024 Active documented as of this encounter (statuses as of 07/31/2024) Active Problems Patient Care Coordination No te Formatting of this note migh t be different from the original. Please address these codes for accuracy, including them in the office visit note if current. Thanks, Yg RN, NN Previous Diagnoses 1. L97.511 - Skin ulcer of third toe of right foot, limited to breakdown of skin (HCC) 2. 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, bilateral, mild stage Problem Noted Date Diagnosed Date Pain of right thumb 07/30/2019 Encounter for therapeutic drug monitoring 2018 Mixed hyperlipidemia 10/24/2018 Assessment & Plan (07/31/2024 8:28 AM EDT): Orders: LIPID PANEL; Future LIPID PANEL Hypertension 08/19/2018 Rheumatoid arthritis 08/19/2018 documented as of this encounter (statuses as of 07/31/2024) Immunizations Name Administration Dates Next Due COVID-19 Seasonal Vaccine Pf izer 12 Years and older 07/04/2024 High Dose Influenza 07/03/2020,07/08/2019 Influenza 07/05/2022,07/02/2021,07/12/2018 Influenza (Flublok) 07/24/2023 Influenza Trivalent (Fluad) 07/04/2024 Pneumococcal PCV-13 07/02/2021 Pneumococcal PCV-20 11/05/2023 Pneumococcal PPSV 23 07/25/2011 SARS-COV-2 (Pfizer) 04/25/2022 SARS-COV-2 BIVALENT (Pfizer) 07/19/2022 SARS-CoV-2 (Purple Cap, With Diluent) Pfizer 07/09/2021,12/21/2020,11/23/2020 Tdap (Adacel) 06/08/2014 Zoster Recombinant Vaccine (Shingrix) 07/05/2022 ,05/04/2022 documented as of this encounter Social History Tobacco Use Types Packs/Day Years Used Date Smoking Tobacco: Former Smokeless Tobacco: Never Alcohol Use Standard Drinks/Week Comments Yes 21 (1 standard drink = 0.6 oz pu re alcohol) daily AUDIT-C Answer Date Recorded Q1: How often do you have a drink containing alcohol? 4 or more times a week 11/02/2023 Q2: How many drinks containi ng alcohol do you have on a typical day when you are drinking? 3 or 4 4 Q3: How often do you have si x or more drinks on one occasion? Never 11/02/2023 Overall Financial Resource Strain (CARDIA) Answe r Date Recorded How hard is it for you to pa y for the very basics like food, housing, medical care, and heating? Not hard at all 11/02/2023 [facility] of Occupat ional Health - Occupational Stress Questionnaire Answer Date Recorded Do you feel stress - tense, restless, nervous, or anxious, or unable to sleep at night because your mind is troubled all the time - these days? Not at all 10/29/2020 Exercise Vital Sign Answer Date Recorde d On average, how many days pe r week do you engage in moderate to strenuous exercise (like a brisk walk)? 6 days 10/29/2020 On average, how many minutes do you engage in exercise at this level? 30 min 10/29/2020 Hunger Vital Sign Answer Date Recorded Within the past 12 months, y ou worried that your food would run out before you got the money to buy more. Never true 11/02/19 24 Within the past 12 months, t he food you bought just didn't last and you didn't have money to get more. Never true 11/02/2023 PRAPARE - Transportation Answer Date Re corded In the past 12 months, has l ack of transportation kept you from medical appointments or from getting medications? No 10/09 In the past 12 months, has l ack of transportation kept you from meetings, work, or from getting things needed for daily living? No 11/02/2023 Depression Answer Date Recorded PHQ-2 Screening Result Negative PHQ Result Negative 11/02/2023 Substance Use Answer Date Recorded DAST Result Not on file 11/02/2023 How many times in the past y ear have you used an illegal drug or used a prescription medication for non-medical reasons (for example, because of the experience or feeling it caused)? 0 11/02/2023 Sex and Gender Information Value Date Recorded Sex Assigned at Not on file Gender Identity Male 11/02/2023 2:29 PM EST Sexual Orientation Straight 11/02/2023 2: 29 PM EST documented as of this encounter Last Filed Vital Signs Vital Sign Reading Time Taken Comments Blood Pressure 134/82 07/31/2024 8:21 AM EDT Pulse 77 07/31/2024 7:57 AM EDT Temperature 36.4 C (97.6 F) 07/31/2024 7:57 AM ED T Respiratory Rate 18 07/31/2024 7:57 AM EDT Oxygen Saturation 96% 07/31/2024 7:57 AM EDT Inhaled Oxygen Concentration - - Weight 92.3 kg (203 lb 8 oz) 07/31/2024 7:57 AM EDT Height 175.3 cm (5' 9") 07/31/2024 7:57 AM EDT Body Mass Index 30.05 07/31/2024 7:57 AM EDT documented in this encounter Progress Notes * Tristian Soto PA-C - 07/31/2024 8:00 AM EDT [facility] [place] [address] [place] [address] Name: Aashish Rangel Date of : 1950 Chief Complaint Shortness Of Breath History of Present Illness Aashish Rangel is a 74 year old male who presents for Shortness of Breath - exertional, notices a lot with riding bicycle up incline - takes him longer to catch his breath - he did have normal stress test in November 2022 - he has extensive smoking history, however he quit about 13 years ago - reports smoking 2ppd for many years - denies chest pains - no dyspnea with normal walking/ambulation or at rest I have personally reviewed and updated the patient's problem list, past medical, surgical, family histories, review of systems as well as the patient's medications and allergies. Please refer to the patient's chart for further details. Review of Systems - as noted in HPI Family History Problem Relation Age of Onset Heart Disease Biological Mother RI Arthritis Biological Mother polyarthralgia Heart Disease Biological Father RI COPD Biological Father Stroke Biological Father Cancer Maternal Grandmother Social History Tobacco Use Smoking status: Former Smokeless tobacco: Never Vaping Use Vaping status: never used Substance Use Topics Alcohol use: Yes Alcohol/week: 21.0 standard drinks of alcohol Types: 21 Cans of beer per week Comment: daily Drug use: No Past Surgical History: Procedure Laterality Date APPENDECTOMY CATARACT EXTRACTION 01/30/2023 CATARACT EXTRACTION 02/06/2023 COLONOSCOPY 02/08/2018 JOINT REPLACEMENT Left 2011 Knee JOINT REPLACEMENT Right 2016 Knee RETINAL LASER PROCEDURE TOE SURGERY Right 05/2023 hammer toe TOE SURGERY Left 08/06/2023 hammer toe UPPER GI ENDOSCOPY 02/08/2018 Outpatient Medications Marked as Taking for the 07/31/24 encounter (Office Visit) with Tristian Soto PA-C Medication Sig Dispense Refill albuterol 90 MCG inhl Take 2 puffs 4 times a day as needed 1 each 3 amLODIPine (NORVASC) 10 mg oral tablet TAKE ONE TABLET BY MOUTH EVERY DAY 90 tablet 1 aspirin (ADULT LOW DOSE ASPIRIN) 81 mg oral tablet Take 1 tablet by mouth daily atorvastatin (LIPITOR) 40 mg oral tablet TAKE ONE TABLET BY MOUTH EVERY DAY 90 tablet 1 etanercept (ENBREL) 50 mg/mL (1 mL) subcutaneous injection Inject 1 mL into the skin once a week 4 mL 6 fexofenadine (DAVID) 180 mg oral tablet Take 180 mg by mouth daily As needed during allergy season, he has been off this for 2 weeks FISH OIL - EPA/DHA (OMEGA 3) 1,200 mg oral capsule Take 1 capsule by mouth daily folic acid/multivit-min/lutein (CENTRUM SILVER ORAL) Take 1 tablet by mouth daily metoprolol succinate (TOPROL-XL) 25 mg oral extended-release tablet Take 1 tablet by mouth daily 90tablet 3 omeprazole (PRILOSEC) 40 mg oral delayed-release capsule TAKE ONE CAPSULE BY MOUTH EVERY DAY BEFOREA MEAL 90 capsule 1 Physical Exam BP 134/82 | Pulse 77 | Temp 97.6 F (36.4 C) (Temporal) | Resp 18 | Ht 5' 9" (175.3 cm) | Wt 203lb 8 oz (92.3 kg) | SpO2 96% | BMI 30.05 kg/m Wt Readings from Last 3 Encounters: 07/31/24 203 lb 8 oz (92.3 kg) 03/17/24 207 lb (93.9 kg) 02/01/24 207 lb 1.6 oz (93.9 kg) BP Readings from Last 3 Encounters: 07/31/24 134/82 03/17/24 (!) 150/92 02/01/24 146/82 Physical Exam Vitals and nursing note reviewed. Constitutional: Appearance: Normal appearance. Cardiovascular: Rate and Rhythm: Normal rate and regular rhythm. Heart sounds: Normal heart sounds. Pulmonary: Effort: Pulmonary effort is normal. No respiratory distress. Breath sounds: Normal breath sounds. Musculoskeletal: Cervical back: Neck supple. Lymphadenopathy: Cervical: No cervical adenopathy. Neurological: Mental Status: He is alert. Assessment & Plan Dyspnea on exertion Will notify with chest x-ray results. Start trial albuterol prn. Suspect COPD/emphysema with smoking history. Discussed possible follow up PFT Essential hypertension Orders: CBC (INCLUDES DIFFERENTIAL AND PLATELETS); Future COMPREHENSIVE METABOLIC PANEL (CMP); Future CBC (INCLUDES DIFFERENTIAL AND PLATELETS) COMPREHENSIVE METABOLIC PANEL (CMP) Mixed hyperlipidemia Orders: LIPID PANEL; Future LIPID PANEL Orders Placed This Encounter XR EXAM CHEST 2 VIEWS albuterol 90 MCG inhl Tristian Soto PA-C [facility] [place] 07/31/24 documented in this encounter Nursing Notes * Kadi Caceres LPN - 07/31/2024 8:00 AM EDT Pt here d/t constant headaches and sob. Pt concerned that beta-anibal could be causing the sob. Ptdid have covid and flu vaccines. documented in this encounter Miscellaneous Notes * Assessment & Plan Note - Tristian Soto PA-C - 07/31/2024 8:00 AM EDT Associated Problem(s): Mixed hyperlipidemia Orders: LIPID PANEL; Future LIPID PANEL documented in this encounter Plan of Treatment Scheduled Orders Name Type Priority Associated Diagnoses Orde r Schedule XR EXAM CHEST 2 VIEWS Imaging Routine Dyspnea on exertion 1 Occurrences starting 07/31/2024 until 07/31/2025 CBC (INCLUDES DIFFERENTIAL AND PLATELETS) Lab Routine Essential hypertension 1 Occurrences starting 07/31/2024 until 07/31/2025 COMPREHENSIVE METABOLIC PANEL (CMP) Lab Routine Essential hypertension 1 Occurrences starting 07/31/2024 until 07/31/2025 LIPID PANEL Lab Routine Mixed hyperlipidemia 1 Occurrences starting 07/31/2024 until 07/31/2025 HEMOGLOBIN A1C (HGBA1C) Lab Routine Dyspnea on exertion 1 Occurrences starting 07/31/2024 until 07/31/2025 Health Maintenance Due Date Last Done Comments Colorectal Cancer Screening Discussion 2024 DTaP/Tdap/Td Vaccine (2 - Td or Tdap) 06/08/2024 06/08/2014 Creatinine Serum 10/10/2024 10/10/2023, 12/2022, 03/10/2022, Additional history exists Potassium 10/10/2024 10/10/2023, 12/2022, 03/10/2022, Additional history exists Advance Directives 11/05/2024 11/05/2023, 0 11/02/2022, 10/24/2018 Billable Depression Screen 11/05/202411/05, 11/02/2022, 10/31/2021, Additional history exists Full Body Skin Exam 11/05/2024 10/28/2019 Postpone d from 10/28/2020 (Recommended) Medicare Annual Wellness Visit 11/05/2024 11/05/2023, 11/05/2023, 11/02/2022, Additional history exists Vision Exam 11/12/2024 11/12/2019, 11/06/2019 Hearing Screening 05/31/2026 05/31/2021, , 03/26/2019 Cholesterol Screening 10/10/2028 10/10/2023 , 10/10/2022, 10/27/2021, Additional history exists AAA Screening Completed 05/21/2014 Hepatitis C Screen Addressed 05/21/2014 Overridde n with the intention of not completing the topic Colonoscopy Discontinued 02/08/2018 Colorectal Cancer Screening Discontinued Shingles Vaccine (Recombinant) Completed 07/05/2022, 05/04/2022 Depression Screening Completed 11/05/2023 Pneumococcal Vaccine Completed 11/05/2023, 07/02/2021, 07/25/2011 COVID-19 Vaccine Completed 07/04/2024, 09/2022, 04/25/2022, Additional history exists Flu Vaccine Completed 07/04/2024, 07/08, 07/05/2022, Additional history exists Cologuard Discontinued Fecal Occult Blood Testing Discontinued Hepatitis B Vaccine Aged Out No longe r eligible based on patient's age to complete this topic Sigmoidoscopy Discontinued documented as of this encounter Visit Diagnoses Diagnosis Dyspnea on exertion- Primary Other dyspnea and respiratory abnormality Essential hypertension Unspecified essential hypertension Mixed hyperlipidemia documented in this encounter Care Teams Gunsmith Apprentice Relationship Specialty Start Date End Date Tristian Soto PA-C [address] [place] [address] [address] [facility] [place] [address] PCP - General 11/02/21 Ivanna Ortega AUD [address] [facility] [phone] [place] [phone] Audiology 01/16/19 Provider, MD JEANE Aleman PROVIDER 02/04/19 Jami Rolon PA-C [address] [facility] [address] [place] [address] Rheumatology 03/18/19 Kenroy Rodriguez DO [address] [facility] [address] [place] [address] Orthopaedic Surgery 04/21/19 Jacqueline Gutierrez PA-C [address] [facility] [phone] [place] [address] Rheumatology 07/30/19 [place] [address] [place] [address] [phone] [place] [address] Rheumatology 08/12/19 Anh Saldivar PA-C [address] [place] [phone] Rheumatology 12/15/19 Tech, Ent Audio SH ENT SCIPIO 06/16/20 Munira Medina AUD [address] [place] [address] [phone] [place] [address] Audiology 05/31/21 Doug Moulton AUD [address] [place] [address] [phone] [place] [address] Audiology 08/29/21 Provider, Generic External Data 10/31/21 Nabil Ackerman MD [address] [facility] [address] [place] [address] Ophthalmology 01/30/23 None SELF-REFERRED OR FOR UNREFERRED [facility] HEALTH PLAN 02/05/23 Ana Negro AUD [address] [place] [phone] Audiology 09/13/23 Provider, Historical EPICARE PROVIDER 11/02/23 José Miguel Cherry PA-C [address] [facility] [address] [place] [address] Sports Medicine 11/08/23 documented as of this encounter
--- OUTSIDE RECORDS SUMMARY | 2024-10-04 02:04 | External Medical Summary | Summary of Care ---
Author Name Unknown Organization [facility] Ambulatory Address [address] [place] [address] Phone Care Team Providers Care Oil Seal Assembler Name Role Phone Ivanna Ortega AUD Unavailable [phone] Provider, Love MORENO Unavailable Unavailabl Jami Casper PA-C Unavailable [phone] Kenroy Rodriguez DO Unavailable [phone] Jacqueline Gutierrez PA-C Unavailable [phone] Camelia Flor DO Unavailable [phone] Anh Saldivar PA-C Unavailable [phone] Tech, Ent Audio Unavailable Unavailable Munira Medina AUD Unavailable Unavailable Doug Moulton AUD Unavailable [phone] Provider, Generic External Data Unavailable Unavailable Tristian Soto PA-C Primary Care Provider [phone] Nabil Ackerman MD Unavailable [phone] None Unavailable Unavailable Ana Negro AUD Unavailable [phone] Provider, Historical Unavailable Unavailable José Miguel Cherry PA-C Unavailable [phone] Source Comments This information has been disclosed [...] except as provided at sections 2.12(c)(5) and 2.65.[facility] Ambulatory Reason for Visit * Reason Comments Hearing Aid Check Encounter Details Date Type Department Care Team (Latest Contact Info) Description 09/12/2024 12:30 PM EST Testing Visit ENT [place] [address] [phone] Sponge Press Operator: Deloris Cordero David Joseph, JAYLEN [phone] [place] [address] Sensorineural hearing loss, bilateral (Primary Dx) Allergies Active Allergy Reactions Criticality Noted Date Comments Piroxicam Rash 05/21/2014 documented as of this encounter (statuses as of 09/12/2024) Medications Medication Sig Dispensed Refills Start Date End Date Status folic acid/multivit-min/germán tein (CENTRUM SILVER ORAL) Take 1 tablet by [...] been off this for 2 weeks Active metoprolol succinate (TOPROL-XL) 25 mg oral extended-release tablet Take 1 tablet by mouth daily 90 tablet 3 02/01/2024 Active omeprazole (PRILOSEC) 40 mg oral delayed-release capsule TAKE ONE CAPSULE BY MOUTH EVERY DAY BEFORE A MEAL 90 capsule 1 06/27/2024 Active amLODIPine (NORVASC) 10 mg oral tablet TAKE ONE TABLET BY MOUTH EVERY DAY 90 tablet 1 07/05/2024 Active etanercept (ENBREL SURECLICK) 50 mg/mL (1 mL) subQ subcutaneous injectionIndications :Rheumatoid arthritis involving multiple sites with positive rheumatoid factor (HCC) One injection every 7 days 4 each 6 08/12/2024 Active atorvastatin (LIPITOR) 40 mg oral tablet TAKE ONE TABLET BY MOUTH EVERY DAY 90 tablet 1 08/27/2024 Active albuterol sulfate 90 mcg/actuation inhl inhaler Take 2 puffs 4 times a day as needed 07/31/2024 Active documented as of this encounter (statuses as of 09/12/2024) Active Problems Patient Care Coordination No te [...] as of this encounter (statuses as of 09/12/2024) Immunizations Name Administration Dates Next Due COVID-19 [...] and heating? Not hard at all 11/02/2023 [facility] by [facility] - Occupational Stress Questionnaire Answer Date [...] Answer Date Recorded PHQ-2 Screening Result Negative 4 PHQ Result Negative 11/02/2023 Substance Use Answer [...] PM EST documented as of this encounter Progress Notes * Doug Moulton AUD - 09/12/2024 12:30 PM EST Patient: Aashish Rangel Date of : 1950 Date: 09/12/2024 Presents for: Audiology Visit Hearing Aid(s): Gio Gilmore [id number], RONNY Hearing Aid Fittin05-07-2019 Out of Warranty Hearing Aid Check Patient was seen today for an out of warranty check of his hearing aids.. 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 Aashish mentioned that once in awhile the hearing aids do not charge properly overnight. This does not happen often. Also, he noticed the volume control function can work intermittently as well. Otherwise, he is hearing well when he wears them. Otoscopy: Ear canals were clean and clear of excessive cerumen. Tympanic membranes was visualized and appeared intact and healthy. Hearing Aid(s): Hearing aids casing and battery contacts were cleaned and checked. Initial listening check revealedproper functioning of both devices. Microphones and receivers suctioned, domes and wax guards changed. Hearing aids dehumidified. Post listening check revealed clear excellent sound quality, AU. Initially it was observed that there were no filters at all in the receivers. I therefore attemptedto place cerushield filters in the receivers. Unfortunately when testing its function, the filter was able to be put in, but it was unable to be removed. I therefore placed new 5.0 #1, Medium receivers on the aids. I will contact [employer] to have this done at no charge since the aids are out of warranty. Hearing aids were not connected to [facility] today since the aids are out of warranty and no adjustmentswere needed. It was recommended to change the filters month and to return in 6 month for a HAC. Patient was agreeable. Recommendations: - 6 month HAC Lorrie Cruz Clinical Pharmacy Associate documented in this encounter Plan of Treatment Health Maintenance Due Date Last Done Comments RSV Vaccine (1 - 1-dose 75+ series) 2023 Colorectal Cancer Screening Discussion 2024 DTaP/Tdap/Td Vaccine [...] Essential hypertension Unspecified essential hypertension Mixed hyperlipidemia Sensorineural hearing loss, bilateral- Primary documented in this encounter Care Teams Oil Seal Assembler Relationship Specialty Start Date End Date Tristian Soto PA-C [address] [facility] [address] [place] [address] PCP - General 11/02/21 Ivanna Ortega AUD [address] [facility] [address] [place] [address] Audiology 01/16/19 Provider, MD JEANE Aleman PROVIDER 02/04/19 Jami Rolon PA-C [address] [facility] [address] [place] [address] Rheumatology 03/18/19 Kenroy Rodriguez DO [address] [facility] [address] [place] [phone] Orthopaedic Surgery 04/21/19 Jacqueline Gutierrez PA-C [address] [facility] [address] [place] [phone] Rheumatology 07/30/19 Camelia Flor DO [address] [facility] [address] [place] [phone] Rheumatology 08/12/19 Anh Saldivar PA-C [address] [place] [address] [address] [place] [address] Rheumatology 12/15/19 [facility], Ent Audio SH ENT [place] 06/16/20 Munira Medina AUD [address] [place] [address] [address] [place] [address] Audiology 05/31/21 Doug Moulton AUD [address] [place] [address] [address] [place] [address] Audiology 08/29/21 Provider, Generic External Data 10/31/21 Nabil Ackerman MD [address] [facility] [address] [facility] [place] [address] Ophthalmology 01/30/23 None SELF-REFERRED OR FOR UNREFERRED [facility] HE[facility] PLAN 02/05/23 Ana Negro AUD [address] [place] [address] [place] [phone] Audiology 09/13/23 Provider, Historical EPICARE PROVIDER 11/02/23 José Miguel Cherry PA-C [address] [facility] [address] [place] [phone] Sports Medicine 11/08/23 documented as of this encounter
[2024-10-04] MEDS ORDERED: NITROGLYCERIN SL 0.4 MG/TAB TAB SL PRN (02:05)
[2024-10-04] MEDS ORDERED: Ativan IV Alcohol Withdrawal--Active Protocol IV PRN (02:05)
[2024-10-04] MEDS ORDERED: ALBUTEROL HFA 8 GM INHALER INH PRN (02:05)
[2024-10-04] MEDS ORDERED: LABETALOL HCL IV 5 MG/ML 20ML IV PRN (02:05)
[2024-10-04] MEDS ORDERED: POLYETHYLENE (MIRALAX) 17 GM PACK PO PRN (02:05)
[2024-10-04] MEDS ORDERED: GABAPENTIN 1200MG ALCOHOL WITHDRAWAL LOAD PO STA (02:05)
[2024-10-04] MEDS ORDERED: LORazepam 2 MG/1 ML VIAL IV PRN ×3 (02:05)
[2024-10-04] MEDS ORDERED: PHARMACIST DISCHARGE MED REC CONSULT PRN (02:05)
[2024-10-04] MEDS: THIAMINE HCL 100 MG in SYRINGE 9 ML IV STA (03:18)
[2024-10-04] MEDS: FOLIC ACID 1 MG in SYRINGE 9.8 ML IV STA (03:18)
[2024-10-04] MEDS: GABAPENTIN 600 MG TAB PO ONE (03:18)
[2024-10-04] MEDS: PANTOprazole 40 MG TAB PO SCH (03:20)
[2024-10-04] MEDS: GABAPENTIN 600 MG TAB PO SCH ×2 (08:05→20:30)
[2024-10-04] MEDS: FOLIC ACID 1 MG TAB PO SCH (08:06)
[2024-10-04] MEDS: THIAMINE HCL 100 MG TAB PO SCH (08:06)
[2024-10-04] MEDS: ATORVASTATIN 40 MG TAB PO SCH (08:06)
[2024-10-04] MEDS: MULTIVITAMIN TAB PO SCH (08:07)
[2024-10-04] MEDS: amLODIPine BESYLATE 5 MG TAB PO SCH (08:07)
[2024-10-04] MEDS: METOPROLOL SUCC 25MG EXT REL TAB PO SCH (08:07)
[2024-10-04] MEDS: ASPIRIN 81 MG ECTAB PO SCH (08:08)
[2024-10-04] MEDS: FEXOFENADINE HCL 180 MG TAB PO SCH (08:10)
[2024-10-04 08:30] LABS: Basophils # (auto) 0.01 K/uL (0.00-0.20); Basophils % (auto) 0.2 %; Eosinophils # (auto) 0.08 K/uL (0.00-0.50); Eosinophils % (auto) 1.3 %; Hematocrit (blood only) 43.1 % (42.0-52.0); Hemoglobin 14.7 g/dl (14.0-18.0); Immature Granulocytes # (auto) 0.02 K/uL (0.01-0.20); Immature Granulocytes % (auto) 0.3 %; Lymphocytes # (auto) 1.98 K/uL (1.20-3.40); Lymphocytes % (auto) 31.9 %; Mean Corpuscular Hgb Conc 34.1 g/dL (32.0-36.0); Mean Corpuscular Volume 90.9 fL (80.0-100.0); Mean Platelet Volume 9.4 fL (9.4-12.4); Monocytes # (auto) 0.81 K/uL (0.11-0.59); Monocytes % (auto) 13.1 %; Neutrophils % (auto) 53.2 %; Platelet Count 170 K/uL (130-400); RDW Coefficient of Variation 12.5 % (11.5-14.5); RDW Standard Deviation 41.5 fL (36.4-46.3); Red Blood Count 4.74 M/uL (4.70-6.10)
--- NOTE | 2024-10-04 08:30 | Cardiology Consultation ---
Date of Consultation October 04, 2024 Assessment & Plan (1) CRAO (central retinal artery occlusion): (2) Elevated troponin: Plan Patient admitted for left vision loss likely due to central retinal artery occlusion. Etiology uncertain. Head/neck CT unremarkable. Brain MRI pending at time of evaluation. Patient reports he has been compliant with ASA and statin at home He had mild chest pain lasting seconds at time of event last evening. No recurrent chest pain. EKG with evidence of inferior infarct. No prior EKG's for comparison. Elevated troponin, peaking at 230's. Echocardiogram pending. No atrial fibrillation on telemetry. Outpatient ZIO Consider additional antiplatelet vs anticoagulation therapy. Further recommendations after review of additional imaging and discussion with Dr Sanderson. I spent a total of 50 minutes on the date of service in preparation, delivery, and documentation of the care provided to this patient, excluding any time spent in the performance of separately billed services. Qing Salazar PA-C Department of Cardiology, [facility] This chart was completed in part utilizing Speech Voice Recognition Software. Grammatical errors, random word insertions, pronoun errors, and incomplete sentences are an occasional consequence of this system due to software limitations, ambient noise, and hardware issues. Any formal questions or concerns about the content, text, or information contained within the body of this dictation should be directly addressed to the provider for clarification. Supervising Physician Co-Signing Physician Notes I have reviewed the advanced practitioner's documentation on the date of service referenced in note, and I agree with, and take responsibility for the plan of care. I spent a total of [30] minutes coordinating, documenting, and providing care for this patient excluding time spent in the performance of separately billed services or time spent by another provider. 74 yr old male with known history of HTN, glaucoma, rheumatoid arthritis, GERD presented with acute left eye vision loss diagnosed with left-sided central retinal artery occlusion presented to the emergency room for stroke workup MRI negative. Had elevated troponins elevated blood pressure echocardiogram shows normal LV function no wall motion abnormalities troponins are trending down Elevated troponins : No acute ischemic changes no wall motion abnormalities demand supply ischemia will need good control of blood pressure. Will also need stress testing Echocardiogram shows mitral annular calcification normal ejection fraction no significant valvular abnormalities ,bubble study negative Increase Lipitor to 80 mg daily Continue with Plavix and aspirin. History of Present Illness Reason for Consultation: Central retinal arterial occlusion- R/O cardiac etiology Requesting Physician: Darshan hospitalist Attending Physician: Dr. Sanderson History of Present Illness Patient presented to [facility] with left vision loss, starting on Wednesday 10/03 after bending over to pick something off the ground. Vision loss was sudden. He went to his grab operator who diagnosed him with left sided central retinal artery occlusion and sent him to the ER for further stroke work up. Head and Neck CT were unremarkable. HS troponin came back minimally elevated at 37 - then trending upward to 115 last night. Repeat this morning at 234 and 231. EKG demonstrated NSR with possible old inferior infarct. No prior EKG for comparison. No reported chest pain/dyspnea on arrival. Admitted for observation. Repeat EKG this morning demonstrated NSR, old inferior infarct, no acute changes. [facility]". No history of blood clots, AK, arrhythmia/atrial fibrillation. At time of consult, patient resting in bed. Just returned from Brain MRI. Still has no vision in left eye. No chest pain, dyspnea. No orthopnea, PND or edema. No palpitations or tachypalpitations. History includes: 1. HTN 2. Dyslipidemia 3. GERD 4. Glaucoma Allergies Allergy/AdvReac Type Severity Reaction Status Date / Time No Known Allergies Allergy Unverified 10/03/24 22:52 Home Medications Medication Instructions Recorded Confirmed Type albuterol sulfate 90 mcg/actuation 2 puff inhalation QID PRN 10/03/24 10/03/24 History aerosol inhaler Shortness Of Breath Or Wheezing amlodipine 10 mg tablet 10 mg PO DAILY 10/03/24 10/03/24 History aspirin 81 mg tablet,delayed 81 mg PO DAILY 10/03/24 10/03/24 History release atorvastatin 40 mg tablet 40 mg PO DAILY 10/03/24 10/03/24 History metoprolol succinate 25 mg 25 mg PO DAILY 10/03/24 10/03/24 History tablet,extended release 24 hr omega [id number]-fish oil 1,200 mg 1 cap PO BID 10/03/24 10/03/24 History (144 mg-216 mg) capsule (Fish Oil) omeprazole 40 mg capsule,delayed 40 mg PO DAILYBB 10/03/24 10/03/24 History release etanercept 50 mg/mL (1 mL) 50 mg subcut WK 10/04/24 10/04/24 History subcutaneous syringe (Enbrel) fexofenadine 180 mg tablet 180 mg PO DAILY 10/04/24 10/04/24 History Patient History Medical History GERD (gastroesophageal reflux disease) HTN (hypertension) HLD (hyperlipidemia) Surgical History No pertinent past surgical history Social History Smoking Status: Former smoker Tobacco Type: Cigarettes Hx Alcohol Use: Yes Alcohol type: beer Hx Substance Use: No Preferred Language: Tanzanian Communication Ability: Effective 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 Beliefs That Will Affect Care: None Current Living Situation: Spouse Feels Safe at Home: Yes Safety Concerns: Feels Safe At This Time Assistive Devices: Denture - Upper, Glasses and Hearing Aid - Bilateral Review of Systems Review of Systems: All systems reviewed & are unremarkable except as noted in HPI & below Physical Exam Constitutional: WD/WN, vitals as above well developed Neck: trachea midline, no thyromegaly Respiratory: normal respiratory effort Auscultation: lungs clear to auscultation bilaterally Cardiovascular: RRR, no murmur, no edema Gastrointestinal (Abdomen): normal bowel sounds, soft, nontender, no hepatosplenomegaly Skin: no rashes, warm and dry Neurologic: PERRL, EOMI, accommodation nl, no face palsy, no dysarthria Results & Data Vital Signs (Past 12 Hours) Vital Signs Temp Pulse Pulse Resp BP BP Pulse Ox 10/04/24 07:55 159/97 H 10/04/24 07:30 36.6 C 84 19 148/100 H 93 10/04/24 07:11 75 10/04/24 03:30 152/82 H 10/04/24 02:18 36.4 C L 88 20 180/83 H 96 10/04/24 02:05 87 10/04/24 02:05 10/04/24 01:43 79 18 140/84 94 10/04/24 01:20 77 18 148/87 H 92 10/04/24 00:51 78 10/03/24 20:59 95 H 16 182/105 H 95 10/03/24 20:54 91 H 10/03/24 20:46 36.5 C 112 H 20 165/83 H 94 Pulse Ox O2 Del Method O2 Del Method 10/04/24 07:55 10/04/24 07:30 Room Air 10/04/24 07:11 10/04/24 03:30 10/04/24 02:18 Room Air 10/04/24 02:05 10/04/24 02:05 96 Room Air 10/04/24 01:43 Room Air 10/04/24 01:20 Room Air 10/04/24 00:51 10/03/24 20:59 Room Air 10/03/24 20:54 10/03/24 20:46 Room Air Laboratory Results Cardiac Enzymes 10/03/24 10/03/24 Range/Units 21:05 22:49 AST 32 (13-39) U/L Troponin I High Sens 37.1 H 115.2 H* D (0-20) pg/ml Coagulation 10/03/24 Range/Units 21:05 PT 9.9 (9.0-12.0) Seconds APTT 24 (21-31) Seconds CBC 10/03/24 10/04/24 Range/Units 21:05 07:59 WBC 6.71 6.20 (4.8-10.8) K/ul RBC 4.84 4.74 (4.70-6.10) M/uL Hgb 15.0 14.7 (14.0-18.0) g/dl Hct 43.8 43.1 (42.0-52.0) % Plt Count 164 170 (130-400) K/uL Neut # (Auto) 3.02 3.30 (1.40-6.50) K/uL Lymph # (Auto) 2.56 1.98 (1.20-3.40) K/uL [place] # (Auto) 1.01 H 0.81 H (0.11-0.59) K/uL Eos # (Auto) 0.08 0.08 (0.00-0.50) K/uL Baso # (Auto) 0.02 0.01 (0.00-0.20) K/uL Comprehensive Metabolic Panel 10/03/24 Range/Units 21:05 Sodium 138 (136-145) mmol/L Potassium 4.0 (3.5-5.1) mmol/L Chloride 104 (98-107) mmol/L Carbon Dioxide 26 (21-32) mmol/L BUN 21 (6-23) mg/dl Creatinine 0.88 (0.6-1.4) mg/dl Glucose 100 H (70-99(Fasting)) mg/dl Calcium 9.2 (8.6-10.3) mg/dl AST 32 (13-39) U/L ALT 29 (7-52) U/L Alkaline Phosphatase 77 (34-104) U/L Total Protein 8.5 H (6.0-8.3) gm/dl Albumin 4.7 (3.4-5.0) gm/dl Intake and Output 10/03/24 10/04/24 10/04/24 22:59 06:59 14:59 Intake Total 100 / 100 Balance 100 / 100 Intake: Oral 100 / 100 Other: # Unmeasured Voids 2 Weight 94.7 kg 92.8 kg Weight Measurement Method Chair Scale Standing Scale Diagnostic Findings Telemetry reviewed: NSR 60-80's. No arrhythmias Echo ordered - results pending EKG reviewed from this morning: NSR LAD Inferior infarct EKG reviewed from arrival on 10/03/24: NSR with possible old inferior infarct. baseline artifact limiting interpretation No prior for comparison Chest X-Ray 10/03/24 20:59 IMPRESSION: No focal consolidation or acute cardiopulmonary process identified. Head CT 10/03/24 20:59 IMPRESSION: No acute intracranial process identified. Head CTA 10/03/24 20:59 IMPRESSION: Negative intracranial CTA examination. Neck CTA 10/03/24 20:59 IMPRESSION: Negative cervical CTA examination. No critical stenosis or occlusion. Medications Administered Current Inpatient Medications Acetaminophen (Acetaminophen 325 Mg Tab) 650 mg PO Q4H PRN PRN Reason: Pain or Fever Stop: 11/03/24 02:04 Albuterol (Albuterol Hfa 8 Gm Inhaler) 2 puffs INH QID PRN PRN Reason: Shortness Of Breath Or Wheezin Stop: 11/03/24 02:04 Amlodipine Besylate (Amlodipine Besylate 5 Mg Tab) 10 mg PO DAILY [facility] Stop: 11/03/24 08:59 Last Admin: 10/04/24 08:07 Dose: 10 mg Aspirin (Aspirin 81 Mg Ectab) 81 mg PO DAILY [facility] Stop: 11/03/24 08:59 Last Admin: 10/04/24 08:08 Dose: 81 mg Atorvastatin Calcium (Atorvastatin 40 Mg Tab) 40 mg PO DAILY [facility] Stop: 11/03/24 08:59 Last Admin: 10/04/24 08:06 Dose: 40 mg Fexofenadine HCl (Fexofenadine Hcl 180 Mg Tab) 180 mg PO DAILY [facility] Stop: 11/03/24 08:59 Last Admin: 10/04/24 08:10 Dose: Not Given Folic Acid (Folic Acid 1 Mg Tab) 1 mg PO QAM [facility] Stop: 11/03/24 08:59 Last Admin: 10/04/24 08:06 Dose: 1 mg Gabapentin (Gabapentin 600 Mg Tab) 600 mg PO Q6H [facility] Stop: 10/04/24 14:31 Last Admin: 10/04/24 08:05 Dose: 600 mg Gabapentin (Gabapentin 600 Mg Tab) 600 mg PO Q8H [facility] Stop: 10/05/24 14:01 Gabapentin (Gabapentin 600 Mg Tab) 600 mg PO Q12H [facility] Stop: 10/06/24 12:01 Gabapentin (Gabapentin 600 Mg Tab) 600 mg PO Q24H [facility] Stop: 10/07/24 12:01 Labetalol HCl (Labetalol Hcl Iv 5 Mg/Ml 20ml) 10 mg IV Q4H PRN PRN Reason: Hypertension Stop: 11/03/24 02:04 Lorazepam (Lorazepam 2 Mg/1 Ml Vial) 1 mg IV UD PRN; Protocol PRN Reason: EtOH Withdrawal AWSS Score 6,7 Stop: 11/03/24 02:04 Lorazepam (Lorazepam 2 Mg/1 Ml Vial) 2 mg IV UD PRN; Protocol PRN Reason: EtOH Withdrawal AWSS Score 8,9 Stop: 11/03/24 02:04 Lorazepam (Lorazepam 2 Mg/1 Ml Vial) 3 mg IV ONCE PRN; Protocol PRN Reason: EtOH Withdrawal AWSS Score 10+ Metoprolol Succinate (Metoprolol Succ 25mg Ext Rel Tab) 25 mg PO DAILY [facility] Stop: 11/03/24 08:59 Last Admin: 10/04/24 08:07 Dose: 25 mg Miscellaneous Information (Pharmacist Discharge Med Rec Consult) 1 each N/A UD PRN PRN Reason: Consult Stop: 11/03/24 02:04 Multivitamins (Multivitamin Tab) 1 tab PO QAM [facility] Stop: 11/03/24 08:59 Last Admin: 10/04/24 08:07 Dose: 1 tab Nitroglycerin (Nitroglycerin Sl 0.4 Mg/Tab Tab) 0.4 mg SL Q5M PRN PRN Reason: Chest Pain Stop: 11/03/24 02:04 Pantoprazole Sodium (Pantoprazole 40 Mg Tab) 40 mg PO DAILYBB [facility] Stop: 11/03/24 06:29 Last Admin: 10/04/24 03:20 Dose: 40 mg Polyethylene Glycol (Polyethylene (Miralax) 17 Gm Pack) 17 gm PO DAILY PRN PRN Reason: Constipation Stop: 11/03/24 02:04 Thiamine HCl (Thiamine Hcl 100 Mg Tab) 100 mg PO QAM [facility] Stop: 11/03/24 08:59 Last Admin: 10/04/24 08:06 Dose: 100 mg (1) CRAO (central retinal artery occlusion) Laterality: left Qualified Code(s): H34.12 - Central retinal artery occlusion, left eye
[2024-10-04 08:38] LABS: BUN Creatinine Ratio 21.5 (10-20); Calcium 9.4 mg/dl (8.6-10.3); Chol HDL Ratio 2.8 (0-5); Potassium 4.3 mmol/L (3.5-5.1)
[2024-10-04 08:44] LABS: Estimated Average Glucose 131 mg/dl; Hemoglobin A1C 6.2 % (4.5-5.6)
[2024-10-04 08:45] LABS: Troponin I High Sensitivity 234.4 pg/ml (0-20)
[2024-10-04] MEDS ORDERED: Heparin IV Adult Wt-Based Low-Dose w/ INITIAL Bolus Protocol IV STA (09:12)
[2024-10-04] MEDS ORDERED: HEPARIN SOD (PORCINE) 1000 UNIT/ML IV ONE (09:27)
[2024-10-04] MEDS ORDERED: HEPARIN SODIUM/DEXTROSE 25,000 UNITS/500 ML BAG IV SCH (09:30)
[2024-10-04] MEDS: GADOBUTROL 30ML VIAL IV ONE (09:49)
--- NOTE | 2024-10-04 10:07 | Magnetic Resonance Report ---
MR brain wo/w con CLINICAL HISTORY: left eye vision loss TECHNIQUE: Multiplanar and multisequence MR images of the brain were obtained prior to and following administration of gadolinium contrast. Comparison: None available at the time of this dictation. FINDINGS: No abnormal restricted diffusion is identified. The white matter is unremarkable. Ex vacuo ventriculo megaly and sulcal enlargement is noted compatible with diffuse volume loss. No mass or abnormal enhan cement is seen. There is no mass effect or midline shift. There is no evidence of acute intraparenchy mal hemorrhage. No extra axial fluid collections are seen. The corpus callosum, pituitary gland, and cerebellar tonsils appear grossly unremarkable. Flow voids of the major intracranial arterial vessels are identified. The imaged portions of the para nasal sinuses, mastoid air cells, and orbits are unremarkable. IMPRESSION: No acute abnormality and in particular no evidence of acute infarct. ACT 112: Negative or not required by law. Electronically signed by: Domnigo Lambert M.D. 10/04/2024 10:04 AM
--- NOTE | 2024-10-04 10:20 | Electrocardiogram Report ---
Test Reason : Blood Pressure : */* mmHG Vent. Rate : 89 BPM Atrial Rate : 89 BPM P-R Int : 160 ms QRS Dur : 80 ms QT Int : 366 ms P-R-T Axes : 48 -10 -4 degrees QTcB Int : 445 ms Normal sinus rhythm Inferior infarct , age undetermined Abnormal ECG No previous ECGs available Confirmed by Stacey Calle (Saundra) on 10/04/2024 10:20:12 AM Referred By: NO PCP Confirmed By: Stacey Calle
[2024-10-04] MEDS: CLOPIDOGREL BISULFATE 75 MG TAB PO SCH (11:08)
--- NOTE | 2024-10-04 14:15 | Neurology Consultation ---
Date of Consultation October 04, 2024 Assessment & Plan (1) CRAO (central retinal artery occlusion): CRAO in a 74M with a pMH of HTN and HLD. On exam he continues with significantly reduced vision in the left eye, but his exam is otherwise normal. CT/CTA and MRI were negative for acute changes. I suspect that this is cardioembolic. Plan -- continue DAPT for 21 days and then stop plavix -- SBP < 130 goal -- continue statin -- ziopatch at d/c -- no further inpatient neuro work up Telehealth Consultation Telehealth Information Telehealth Information: I performed this visit using a real-time telehealth connection between my location and the patients location ([facility]). After connecting through interactive tele-video, patient was identified by name and date of and/or wristband check.Patient (or authorized healthcare merchandising representative) was informed that this was a telemedicine visit and it was being conducted confidentially over secure lines. My office door was closed and no one else was present in the room with me.Patient (or authorized healthcare merchandising representative) provided consent to proceed with the visit, expressed an understanding of privacy and security of the telemedicine visit, and gave permission to have a hospital merchandising representative in the room in order to assist with the visit and to conduct portions of the visit, as needed. I informed the patient (or authorized healthcare merchandising representative) that I reviewed their record and presented the opportunity for them to ask any questions regarding the visit today. The patient agreed to participate. History of Present Illness Reason for Consultation: JAKY Attending Physician: Akanksha Stewart MD History of Present Illness Alondra Rangel is a 74M with a PMH of He reports that yesterday at 530pm he was putting things away and cleaning up after his cat. He says that while doing this the eye became kimbrough. He reports that he can see light and there is a bit in the corner. No eye pain, no palpitations or headache. He does reports reports 2 instances of detached retina in the left eye. He called his eye doctor who made a special appointment for him and told him he has a blood clot in the eye. His vision is essentially unchanged today and he has noticed no improvement. He denies fevers, chest pain and SOB. Allergies Allergy/AdvReac Type Severity Reaction Status Date / Time No Known Allergies Allergy Unverified 10/03/24 22:52 Home Medications Medication Instructions Recorded Confirmed Type albuterol sulfate 90 mcg/actuation 2 puff inhalation QID PRN 10/03/24 10/03/24 History aerosol inhaler Shortness Of Breath Or Wheezing amlodipine 10 mg tablet 10 mg PO DAILY 10/03/24 10/03/24 History aspirin 81 mg tablet,delayed 81 mg PO DAILY 10/03/24 10/03/24 History release atorvastatin 40 mg tablet 40 mg PO DAILY 10/03/24 10/03/24 History metoprolol succinate 25 mg 25 mg PO DAILY 10/03/24 10/03/24 History tablet,extended release 24 hr omega 0-zry-uom-fish oil 1,200 mg 1 cap PO BID 10/03/24 10/03/24 History (144 mg-216 mg) capsule (Fish Oil) omeprazole 40 mg capsule,delayed 40 mg PO DAILYBB 10/03/24 10/03/24 History release etanercept 50 mg/mL (1 mL) 50 mg subcut WK 10/04/24 10/04/24 History subcutaneous syringe (Enbrel) fexofenadine 180 mg tablet 180 mg PO DAILY 10/04/24 10/04/24 History Patient History Medical History GERD (gastroesophageal reflux disease) HTN (hypertension) HLD (hyperlipidemia) Surgical History No pertinent past surgical history Social History Smoking Status: Former smoker Tobacco Type: Cigarettes Hx Alcohol Use: Yes Alcohol type: beer Hx Substance Use: No Preferred Language: [place]i Communication Ability: Effective Director [facility] Required: No Beliefs That Will Affect Care: None Current Living Situation: Spouse Feels Safe at Home: Yes Safety Concerns: Feels Safe At This Time Assistive Devices: Denture - Upper, Glasses and Hearing Aid - Bilateral Review of Systems See HPI Physical Exam Awake and alert, no aphasia or dyaarthria. pupils equal and reactive, senses light in the left eye, normal vision in the right eye, face symmetric, no extremity weakness, sensation intact throughout Results & Data Vital Signs (Past 12 Hours) Vital Signs Temp Pulse Pulse Resp BP Pulse Ox O2 Del Method 10/04/24 10:54 36.5 C 72 19 153/86 H 94 Room Air 10/04/24 07:55 159/97 H 10/04/24 07:30 36.6 C 84 19 148/100 H 93 Room Air 10/04/24 07:11 75 10/04/24 03:30 152/82 H 10/04/24 02:18 36.4 C L 88 20 180/83 H 96 Room Air Laboratory Results Abnormal Lab Results 10/03/24 10/03/24 10/03/24 21:05 21:16 22:29 WBC 6.71 RBC 4.84 Hgb 15.0 POC Hgb 15.6 Hct 43.8 POC Hct 46 MCV 90.5 MCH 31.0 MCHC 34.2 RDW Std Deviation 40.5 RDW Coeff of Sergio 12.3 Plt Count 164 MPV 9.6 Immature Gran % (Auto) 0.3 Neut % (Auto) 44.9 Lymph % (Auto) 38.2 Clay % (Auto) 15.1 Eos % (Auto) 1.2 Baso % (Auto) 0.3 Neut # (Auto) 3.02 Lymph # (Auto) 2.56 Clay # (Auto) 1.01 H Eos # (Auto) 0.08 Baso # (Auto) 0.02 Immature Gran # (Auto) 0.02 PT 9.9 INR 0.9 APTT 24 PTT Ratio 0.9 POC Sodium 140 Sodium 138 POC Potassium 3.9 Potassium 4.0 POC Chloride 105 Chloride 104 Carbon Dioxide 26 POC Total CO2 26 Anion Gap 8 POC Anion Gap 14.0 L POC BUN 21 H BUN 21 Creatinine 0.88 POC Creatinine 0.8 Est Cr Clr Drug Dosing 82.5 eGFR 89.12 BUN/Creatinine Ratio 23.9 H Glucose 100 H POC Glucose (other) 99 Estimat Average Glucose Hemoglobin A1c Calcium 9.2 POC Ioniz Calcium Paco 1.19 Magnesium 2.1 Total Bilirubin 0.6 AST 32 ALT 29 Alkaline Phosphatase 77 Troponin I High Sens 37.1 H Total Protein 8.5 H Albumin 4.7 Globulin 3.8 Albumin/Globulin Ratio 1.2 Triglycerides Cholesterol LDL Cholesterol, Calc VLDL Cholesterol, Calc HDL Cholesterol Cholesterol/HDL Ratio Vitamin B12 Blood Type O Positive Antibody Screen NEGATIVE 10/03/24 10/04/24 10/04/24 22:49 07:59 07:59 WBC 6.20 RBC 4.74 Hgb 14.7 POC Hgb Hct 43.1 POC Hct MCV 90.9 MCH 31.0 MCHC 34.1 RDW Std Deviation 41.5 RDW Coeff of Sergio 12.5 Plt Count 170 MPV 9.4 Immature Gran % (Auto) 0.3 Neut % (Auto) 53.2 Lymph % (Auto) 31.9 Clay % (Auto) 13.1 Eos % (Auto) 1.3 Baso % (Auto) 0.2 Neut # (Auto) 3.30 Lymph # (Auto) 1.98 Clay # (Auto) 0.81 H Eos # (Auto) 0.08 Baso # (Auto) 0.01 Immature Gran # (Auto) 0.02 PT INR APTT PTT Ratio POC Sodium Sodium 139 POC Potassium Potassium 4.3 POC Chloride Chloride 105 Carbon Dioxide 25 POC Total CO2 Anion Gap 9 POC Anion Gap POC BUN BUN 17 Creatinine 0.79 POC Creatinine Est Cr Clr Drug Dosing 91.0 eGFR 92.07 BUN/Creatinine Ratio 21.5 H Glucose 179 H POC Glucose (other) Estimat Average Glucose 131 Hemoglobin A1c 6.2 H Calcium 9.4 POC Ioniz Calcium Paco Magnesium Total Bilirubin AST ALT Alkaline Phosphatase Troponin I High Sens 115.2 H* D 234.4 H* D 231.5 H* Total Protein Albumin Globulin Albumin/Globulin Ratio Triglycerides 165 H Cholesterol 160 LDL Cholesterol, Calc 70 VLDL Cholesterol, Calc 33 H HDL Cholesterol 57 Cholesterol/HDL Ratio 2.8 Vitamin B12 391 Blood Type Antibody Screen 10/04/24 10:48 WBC RBC Hgb POC Hgb Hct POC Hct MCV MCH MCHC RDW Std Deviation RDW Coeff of Esrgio Plt Count MPV Immature Gran % (Auto) Neut % (Auto) Lymph % (Auto) Clay % (Auto) Eos % (Auto) Baso % (Auto) Neut # (Auto) Lymph # (Auto) Clay # (Auto) Eos # (Auto) Baso # (Auto) Immature Gran # (Auto) PT INR APTT PTT Ratio POC Sodium Sodium POC Potassium Potassium POC Chloride Chloride Carbon Dioxide POC Total CO2 Anion Gap POC Anion Gap POC BUN BUN Creatinine POC Creatinine Est Cr Clr Drug Dosing eGFR BUN/Creatinine Ratio Glucose POC Glucose (other) Estimat Average Glucose Hemoglobin A1c Calcium POC Ioniz Calcium Paco Magnesium Total Bilirubin AST ALT Alkaline Phosphatase Troponin I High Sens 214.5 H* Total Protein Albumin Globulin Albumin/Globulin Ratio Triglycerides Cholesterol LDL Cholesterol, Calc VLDL Cholesterol, Calc HDL Cholesterol Cholesterol/HDL Ratio Vitamin B12 Blood Type Antibody Screen Diagnostic Findings Brain MRI 10/04/24 02:05 MR brain wo/w con CLINICAL HISTORY: left eye vision loss TECHNIQUE: Multiplanar and multisequence MR images of the brain were obtained prior to and following administration of gadolinium contrast. Comparison: None available at the time of this dictation. FINDINGS: No abnormal restricted diffusion is identified. The white matter is unremarkable. Ex vacuo ventriculomegaly and sulcal enlargement is noted compatible with diffuse volume loss. No mass or abnormal enhancement is seen. There is no mass effect or midline shift. There is no evidence of acute intraparenchymal hemorrhage. No extra axial fluid collections are seen. The corpus callosum, pituitary gland, and cerebellar tonsils appear grossly unre markable. Flow voids of the major intracranial arterial vessels are identified. The imaged portions of the paranasal sinuses, mastoid air cells, and orbits are unremarkable. IMPRESSION: No acute abnormality and in particular no evidence of acute infarct. ACT 112: Negative or not required by law. Electronically signed by: Domingo Lambert M.D. 10/04/2024 10:04 AM (1) CRAO (central retinal artery occlusion) Laterality: left Qualified Code(s): H34.12 - Central retinal artery occlusion, left eye
[2024-10-04] MEDS: ACETAMINOPHEN 325 MG TAB PO PRN (14:34)
--- NOTE | 2024-10-04 15:08 | Communication Note ---
Date of Service: October 04, 2024 Patient was seen and examined at bedside. 74-year-old male with PMH of HTN, glaucoma, HLD, GERD, RA comes because of left eye vision loss, onset 10/03/2024 at 5:30 PM. He was able to see eye doctor after the event, was noted to have left sided CRAO and was referred to the ED for stroke workup. Patient denies any numbness or tingling of arms and limbs and any focal weakness or facial deviation or slurring of speech. Right eye vision is okay, left eye vision is blurred. Nonpainful eye movements. 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 Admitting CT head, CTA head and neck unremarkable. MRI brain with no acute abnormality. Echo with EF of 55 to 60%, left ventricular systolic function normal, bubble study negative for [id number] shunt. LDL of 70, A1c of 6.2. Repeat A1c in 3 months. Continue with neurochecks, telemetry monitoring. Continue with DAPT 10/04. Avoid omeprazole while on plavix. PT/OT. Ophthalmology consult. Neurology evaluated, DAPT for 21 days then continue with aspirin. Continue statin. Zio patch at discharge. Elevated troponin: Denies any chest pain or shortness of breath. EKG w/ Q waves in inferior leads. Trop trends peaked at 231, then trending down. ECHO as above. Cardio on board. Alcoholism: Drinks 3-4 beers daily. PO thiamine and folic acid. alcohol withdrawal protocol. IV Ativan as needed. Close monitor Other chronic medical conditions: Continue with/resume home meds as and when able. Hypertension: Continue with amlodipine and metoprolol succinate.As needed IV labetalol. added losartan for BP management. Rheumatoid arthritis: On Enbrel, currently hold while inpatient. GERD: Continue with PPI, avoid omeprazole while on Plavix Hyperlipidemia: Continue with statin, statin dose increased as above. DVT prophylaxis: SCDs Disposition: PT/OT, currently on telemetry. Full code For detailed information on the patient, refer to today's H&P note.
--- NOTE | 2024-10-04 16:43 | Electrocardiogram Report ---
Test Reason : Blood Pressure : */* mmHG Vent. Rate : 83 BPM Atrial Rate : 83 BPM P-R Int : 170 ms QRS Dur : 90 ms QT Int : 370 ms P-R-T Axes : 32 -49 15 degrees QTcB Int : 434 ms Normal sinus rhythm Left axis deviation Left anterior fascicular block Inferior infarct (cited on or before 03-Oct-2024) Abnormal ECG When compared with ECG of 03-Oct-2024 20:56, QRS axis Shifted left Confirmed by Stacey Calle ([id number]) on 10/04/2024 4:42:54 PM Referred By: NO PCP Confirmed By: Stacey Calle
[2024-10-04] MEDS: LOSARTAN POTASSIUM 25 MG TAB PO SCH (20:30)
[2024-10-05 06:30] LABS: Basophils # (auto) 0.02 K/uL (0.00-0.20); Basophils % (auto) 0.3 %; Eosinophils # (auto) 0.16 K/uL (0.00-0.50); Eosinophils % (auto) 2.2 %; Hemoglobin 15.4 g/dl (14.0-18.0); Immature Granulocytes # (auto) 0.01 K/uL (0.01-0.20); Immature Granulocytes % (auto) 0.1 %; Lymphocytes # (auto) 3.41 K/uL (1.20-3.40); Lymphocytes % (auto) 46.7 %; Mean Corpuscular Hemoglobin 31.7 pg (25.0-34.0); Mean Corpuscular Hgb Conc 34.2 g/dL (32.0-36.0); Mean Corpuscular Volume 92.6 fL (80.0-100.0); Mean Platelet Volume 9.4 fL (9.4-12.4); Monocytes # (auto) 0.85 K/uL (0.11-0.59); Monocytes % (auto) 11.6 %; Neutrophils # (auto) 2.85 K/uL (1.40-6.50); Neutrophils % (auto) 39.1 %; Platelet Count 173 K/uL (130-400); RDW Coefficient of Variation 12.4 % (11.5-14.5); RDW Standard Deviation 42.5 fL (36.4-46.3); Red Blood Count 4.86 M/uL (4.70-6.10)
[2024-10-05 06:42] LABS: BUN Creatinine Ratio 20.7 (10-20); Calcium 9.6 mg/dl (8.6-10.3); Creatinine Clr Calc Pharmacy 65.7 ml/min; Magnesium 2.2 mg/dl (1.7-2.4); Phosphorus 4.8 mg/dl (2.5-4.9); Potassium 4.6 mmol/L (3.5-5.1)
[2024-10-05 07:07] VITALS: RESP 19
[2024-10-05] MEDS: ATORVASTATIN 40 MG TAB PO SCH (08:45)
[2024-10-05 11:17] VITALS: PULSE 69; TEMP 97.9; O2SAT 95
[2024-10-05] MEDS ORDERED: STROKE PATIENT DISCHARGE STA (11:45)
--- NOTE | 2024-10-05 11:48 | Discharge Summary ---
Date of Service October 05, 2024 Admission HPI Per Admitting Provider 74-year-old male with past medical history significant for hypertension, glaucoma, hyperlipidemia, GERD, rheumatoid arthritis comes because of left eye vision loss on 10/03/2024 5:30 p.m. He went to eye doctor and had dilated eye exam and diagnosed with left-sided central retinal artery occlusion and advised to come to the ER for stroke workup. ER spoke with ophthalmology and plan was if CT scans are negative can follow as outpatient with cardiac echo but his troponins came back positive. Patient currently resting comfortably. Denies any headache. Denies dizziness. Denies any eye pain. No earache. No runny nose. No sore throat. No cough. No fevers. No chest pain. No shortness of breath. No nausea. No abdominal pain. Eating and drinking okay. No abdominal pain. Normal bowel and bladder movements. Says he could not see anything from the left eye. Right eye vision is okay. Past medical history. As mentioned above Past surgical history. Colonoscopy. Appendectomy. Bilateral repair of hammertoe. Bilateral knee replacements. Social history. . Quit smoking 2004. Smoked from 1961 to 2004 about 1 pack a day. Drinks alcohol 4 beers daily. No drug use. Family history. Father had heart attack. Mother had hypertension and heart disease and glaucoma. Admission Exam Per Admitting Provider General- Not in distress Head- atraumatic Eyes- PERRL, EOMI, Very blurred vision left eye ENT- oropharynx clear Neck- supple, no JVD. Lungs- clear to auscultation no wheezing or crackles Heart- regular rate and rhythm; no murmur, no gallop. Abdomen- normal bowel sounds, soft, nontender, no distension Extremities- no pretibial edema, no erythema seen Neuro- alert, oriented PERRL, EOMI,no facial palsy;Left eye visison loss, no dysarthria; motor 5/5 bilaterally; no pronator drift, coordination of movements ok. sensations intact Principal Diagnosis Central retinal artery occlusion Discharge Exam General- Not in distress Head- atraumatic Eyes- PERRL, EOMI, Very blurred vision left eye ENT- oropharynx clear Neck- supple, no JVD. Lungs- clear to auscultation no wheezing or crackles Heart- regular rate and rhythm; no murmur, no gallop. Abdomen- normal bowel sounds, soft, nontender, no distension Extremities- no pretibial edema, no erythema seen Neuro- alert, oriented PERRL, EOMI,no facial palsy;Left eye visison loss, no dysarthria; motor 5/5 bilaterally; no pronator drift, coordination of movements ok. sensations intact Discharge Data Allergies Allergy/AdvReac Type Severity Reaction Status Date / Time No Known Allergies Allergy Unverified 10/03/24 22:52 Consultations 10/03/24 22:37 ED Decision to Admit Stat 10/04/24 08:00 Consult Cardiology Routine Consult Neurology Routine Consult Ophthalmology Routine Ordered Studies 10/03/24 20:59 CT angio head w con Stat CT angio neck with con Stat CT head/brain wo con Stat 10/04/24 02:05 MR brain wo/w con Urgent Hospital Course (1) CRAO (central retinal artery occlusion): 74-year-old male with PMH of HTN, glaucoma, HLD, GERD, RA comes because of left eye vision loss, onset 10/03/2024 at 5:30 PM. He was able to see eye doctor after the event, was noted to have left sided CRAO and was referred to the ED for stroke workup. Patient denies any numbness or tingling of arms and limbs and any focal weakness or facial deviation or slurring of speech. Right eye vision is okay, left eye vision is blurred. Nonpainful eye movements. 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 Admitting CT head, CTA head and neck unremarkable. MRI brain with no acute abnormality. Echo with EF of 55 to 60%, left ventricular systolic function normal, bubble study negative for [id number] shunt. LDL of 70, A1c of 6.2. Repeat A1c in 3 months. No new neurological signs and symptoms, patient reports vision in his left eye is very gradually improving. Continue with DAPT 10/04. Avoid omeprazole while on plavix. Patient has been explained this, has been prescribed famotidine. Patient advised to follow-up with ophthalmology in 1 to 2 weeks time upon discharge. Neurology evaluated, DAPT for 21 days then continue with aspirin. Continue statin. Zio patch at discharge. Elevated troponin: Denies any chest pain or shortness of breath. EKG w/ Q waves in inferior leads. Trop trends peaked at 231, then trending down. ECHO as above. Cardio Evaluated, follow-up with cardiology as an outpatient. Alcoholism: Drinks 3-4 beers daily. PO thiamine and folic acid. alcohol withdrawal protocol. To complete gabapentin taper upon discharge. Patient has been advised to refrain from alcohol. Other chronic medical conditions: Continue with/resume home meds as and when a ble. Hypertension: Continue with amlodipine and metoprolol succinate. added losartan for BP management. Rheumatoid arthritis: On Enbrel GERD: Continue with PPI, avoid omeprazole while on Plavix Hyperlipidemia: Continue with statin, statin dose increased as above. DVT prophylaxis: SCDs Full code Patient is being discharged to home with following instruction at the point of discharge: Plan Follow-up with your primary care physician within a week time and likely you will need labs CBC/CMP/magnesium/phosphorus. You were evaluated by neurology while in hospital as a part of stroke workup. Follow-up with neurology in 2 to 4 weeks time upon discharge. Coordinate with your PCP office to set up the referral. You need to follow-up with the ophthalmology in 1 to 2 weeks time upon discharge, call your ophthalmology office to set up the appointment. Follow-up with your cardiology in 2 to 4 weeks time upon discharge. Coordinate with your PCP office to set up the referral. You were noted to have prediabetes [A1c of 6.2] in the hospital, we encourage lifestyle modification/healthy diet/daily exercise regimen as a part of preventative measures. You will need long-term monitoring with repeat A1c in 3 months, continue to follow-up with the PCP office for need for ongoing monitoring. You will benefit from Zio patch monitoring as an outpatient, coordinate with your PCP office or cardiology office to set up the test. You are being discharged on Plavix for total of 21 days starting 10/04/2024. While on Plavix, avoid omeprazole. You can use Pepcid during this time. For your blood pressure management, losartan has been added while in hospital.Recommend that you measure your blood pressure twice a day, maintain a log to take to your primary care physician during your next visit for ongoing monitoring/management of your hypertension. Take your medications as prescribed. Please make sure that you are able to get your medications today by calling your pharmacy before you leave the hospital so that your treatment continuity is not broken. Home Health Attestation I certify that this patient is under my care and that I, or a physicians internal medicine physician assistant working with me, had a face to-face encounter that meets the home health [id number] encounter requirements with this patient. The encounter with the patient was in whole, or in part, for the following medical condition, which is the primary reason for home health care (list medical condition): I certify that, based on my findings, the following services are medically necessary home health services: My clinical findings support the need for the above services because: Further, I certify that my clinical findings support that this patient is homebound (i.e. absences from home require considerable and taxing effort and are for medical reasons or druze services or infrequently or of short duration when for other reasons) because: Certification for Home Health Services: Based on the above findings, I certify that this patient is confined to the home and needs intermittent shelter care, physical therapy and/or speech therapy or continues to need occupational therapy. The patient is under my care, and I have initiated the establishment of the plan of care. This patient will be followed by a physician who will periodically review the plan of care. Total Time Total Time Spent Total Time Spent (In Minutes): 45 Discharge Plan Discharge Items Patient Disposition: Home - Self-Care Reason For Visit: LEFT EYE VISION LOSS Discharge Diagnosis: Central retinal artery occlusion Activity: Resume your previous activity Non-emergency contact: Primary Care Provider Call non-emergency contact if: you have any medication questions and your symptoms worsen Follow-up/Referrals: Marquis Parish D.O. [Primary Care Provider] - Diet: Heart Healthy Add Attending Provider Instructions: Follow-up with your primary care physician within a week time and likely you will need labs CBC/CMP/magnesium/phosphorus. You were evaluated by neurology while in hospital as a part of stroke workup. Follow-up with neurology in 2 to 4 weeks time upon discharge. Coordinate with your PCP office to set up the referral. You need to follow-up with the ophthalmology in 1 to 2 weeks time upon discharge, call your ophthalmology office to set up the appointment. Follow-up with your cardiology in 2 to 4 weeks time upon discharge. Coordinate with your PCP office to set up the referral. You were noted to have prediabetes [A1c of 6.2] in the hospital, we encourage lifestyle modification/healthy diet/daily exercise regimen as a part of pr eventative measures. You will need long-term monitoring with repeat A1c in 3 months, continue to follow-up with the PCP office for need for ongoing monitoring. You will benefit from Zio patch monitoring as an outpatient, coordinate with your PCP office or cardiology office to set up the test. You are being discharged on Plavix for total of 21 days starting 10/04/2024. While on Plavix, avoid omeprazole. You can use Pepcid during this time. For your blood pressure management, losartan has been added while in hospital.Recommend that you measure your blood pressure twice a day, maintain a log to take to your primary care physician during your next visit for ongoing monitoring/management of your hypertension. Take your medications as prescribed. Please make sure that you are able to get your medications today by calling your pharmacy before you leave the hospital so that your treatment continuity is not broken. Pending Studies at Discharge: No Stand-Alone Forms: My Q Chip, Smoking Cessation, Medications to Prevent Stroke Medications and DC Order Prescriptions: New clopidogrel 75 mg Tablet 75 mg PO QAM 19 Days Qty: 19 0RF atorvastatin 80 mg tablet 80 mg PO DAILY Qty: 30 0RF losartan 25 mg Tablet 25 mg PO HS Qty: 30 0RF nitroglycerin [Nitrostat] 0.4 mg Tablet, Sublingual 0.4 mg sublingual UD PRN (Reason: chest pain) Qty: 20 0RF gabapentin 600 mg Tablet 600 mg PO UD Qty: 6 0RF Rx Instructions: 1 tab every 8 hours x 1 day, then every 12 hours x 1 day, then daily x 1 day. folic acid 1 mg Tablet 1 mg PO QAM 30 Days Qty: 30 0RF multivitamin with folic acid [Daily-Leilani (with folic acid)] 400 mcg Tablet 1 tab PO QAM 30 Days Qty: 30 0RF thiamine HCl (vitamin B1) 100 mg Tablet 100 mg PO QAM 30 Days Qty: 30 0RF famotidine 20 mg tablet 20 mg PO DAILY Qty: 20 0RF Continued metoprolol succinate 25 mg tablet extended release 24 hr 25 mg PO DAILY albuterol sulfate 90 mcg/actuation HFA aerosol inhaler 2 puff INHALATION QID PRN (Reason: Shortness Of Breath Or Wheezing) aspirin [Aspirin Low-Strength] 81 mg Tablet,Delayed Release (Dr/Ec) 81 mg PO DAILY amlodipine 10 mg tablet 10 mg PO DAILY omega 1-wkz-uug-fish oil [Fish Oil] 1,200 (144-216) mg Capsule 1 cap PO BID fexofenadine 180 mg Tablet 180 mg PO DAILY Enbrel 50 mg/mL (1 mL) Syringe 50 mg SUBCUT WK Held omeprazole 40 mg capsule,delayed release(DR/EC) 40 mg PO DAILYBB Hold Instructions: Resume on 10/27/24. Discontinued atorvastatin 40 mg tablet 40 mg PO DAILY Discharge Orders: Discharge Order (Routine); Ordered 10/05/24 Ordered By: Akanksha Bain/Other Patient Handouts: Central Retinal Artery Occlusion Admission Data Admit Date/Time: 10/04/24 00:57 Attending Provider: Akanksha Stewart Admit Provider: Chapo Beck Primary Care Provider: Marquis Parish Other Providers: Chapo Beck; Jacqueline Romero; Adarsh Scales; Christiano Conner; Werner Munoz; Randal Tapia; Edmundo Hess; Qing Salazar; Marion Calabrese; Meliza Sanderson; Jacqueline Richmond; Chandler Jack; Pro Eduardo; Abbi Mccallum; Pati Noland; Valeria Holland; Annabel Jackson; Nabil Christian; Sugar Torres; Zeny Gill; Marion Willis; Aashish Alexander; Marion Aragon; Doug Simmons; Petr Woods; Jesus Claire; Jose Adhikari; Yvonne Henderson; David Hernandez; Mehran Melo; Agustin King; Harvey Hernández; Sharita Childress; Vee Sarmiento; Jose Gross; Iveth Baca; Jordon Avilez
--- NOTE | 2024-10-05 12:10 | Cardiology Progress Note ---
Date of Service October 05, 2024 Assessment & Plan (1) CRAO (central retinal artery occlusion): (2) Elevated troponin: Plan 10/04/24 Patient admitted for left vision loss likely due to central retinal artery occlusion. Etiology uncertain. Head/neck CT unremarkable. Brain MRI negative. Echo with preserved LVEF. Negative bubble study. Mitral annular calcification noted Patient reports he has been compliant with ASA and statin at home He had mild chest pain lasting seconds at time of event last evening. No recurrent chest pain. EKG with evidence of inferior infarct. No prior EKG's for comparison. Elevated troponin, peaking at 230's. Echocardiogram pending. No atrial fibrillation on telemetry. Outpatient ZIO Consider additional antiplatelet vs anticoagulation therapy. 10/05/28: Vision slowly improving. Plavix added to ASA. Per neuro, continue dual antiplatelet therapy for 3 weeks. Then ASA 81 mg daily Atorvastatin increased to 80 mg. No arrhythmias noted on telemetry. Negative bubble study on echo. Recommend extended outpatient oil expeller. Mildly Elevated troponin noted during admission. No symptoms of chest pain Echo with preserved LVEF. no acute/ischemic EKG changes. Recommend outpatient stress testing. Patient was hypertensive on arrival. BP now improved. Continue amlodipine 10 mg, metoprolol 25 mg, losartan 25. patient to follow up with PCP this week. He believes he want to follow up with [facility] Cardio closer to home. He will discuss with PCP next week at follow up and get appropriate testing. Stable for discharge from cardiac perspective Case discussed with Dr. Sanderson I spent a total of 35 minutes on the date of service in preparation, delivery, and documentation of the care provided to this patient, excluding any time spent in the performance of separately billed services. Qing Salazar PA-C Department of Cardiology, [facility] This chart was completed in part utilizing Speech Voice Recognition Software. Grammatical errors, random word insertions, pronoun errors, and incomplete sentences are an occasional consequence of this system due to software limitations, ambient noise, and hardware issues. Any formal questions or concerns about the content, text, or information contained within the body of this dictation should be directly addressed to the provider for clarification. Admission and Anticipated Discharge Date Admission Date: October 04, 2024 Subjective Patient resting in bed. Feeling well. Denies acute cardiac complaints. Slow visual improvement noted in left eye. Able to see light and some figures, but remains out of focus. Better than yesterday. No chest pain or dyspnea. Bp improving. Tolerating meds. Anxious for discharge. He follows with [facility] PCP and he believes cardiology comes to the same clinic. Wishes to follow up closer to home. Review of Systems Review of Systems: All systems reviewed & are unremarkable except as noted in HPI & below Physical Exam Constitutional: WD/WN, vitals as above well developed Neck: trachea midline, no thyromegaly Respiratory: normal respiratory effort Auscultation: lungs clear to auscultation bilaterally Cardiovascular: RRR, no murmur, no edema Gastrointestinal (Abdomen): normal bowel sounds, soft, nontender, no hepatosplenomegaly Skin: no rashes, warm and dry Neurologic: PERRL, EOMI, accommodation nl, no face palsy, no dysarthria Results & Data Vital Signs (Past 12 Hours) Vital Signs Temp Pulse Pulse Resp BP Pulse Ox Pulse Ox 10/05/24 11:16 36.6 C 69 19 145/82 H 95 10/05/24 08:00 83 10/05/24 07:06 36.8 C 78 19 119/71 94 10/05/24 02:05 96 O2 Del Method O2 Del Method 10/05/24 11:16 Room Air 10/05/24 08:00 10/05/24 07:06 Room Air 10/05/24 02:05 Room Air Laboratory Results Cardiac Enzymes 10/04/24 Range/Units 14:33 Troponin I High Sens 169.8 H* D (0-20) pg/ml CBC 10/05/24 Range/Units 06:03 WBC 7.30 (4.8-10.8) K/ul RBC 4.86 (4.70-6.10) M/uL Hgb 15.4 (14.0-18.0) g/dl Hct 45.0 (42.0-52.0) % Plt Count 173 (130-400) K/uL Neut # (Auto) 2.85 (1.40-6.50) K/uL Lymph # (Auto) 3.41 H (1.20-3.40) K/uL Holt # (Auto) 0.85 H (0.11-0.59) K/uL Eos # (Auto) 0.16 (0.00-0.50) K/uL Baso # (Auto) 0.02 (0.00-0.20) K/uL Comprehensive Metabolic Panel 10/05/24 Range/Units 06:03 Sodium 136 (136-145) mmol/L Potassium 4.6 (3.5-5.1) mmol/L Chloride 102 (98-107) mmol/L Carbon Dioxide 27 (21-32) mmol/L BUN 23 (6-23) mg/dl Creatinine 1.11 D (0.6-1.4) mg/dl Glucose 146 H (70-99(Fasting)) mg/dl Calcium 9.6 (8.6-10.3) mg/dl Intake and Output 10/04/24 10/05/24 10/05/24 22:59 06:59 14:59 Intake Total 1060 / 1420 360 / 1420 Balance 1060 / 1420 360 / 1420 Intake: Oral 1060 / 1420 360 / 1420 Other: # Unmeasured Voids 2 2 Weight 95.5 kg Weight Measurement Method [facility] Findings Telemetry reviewed: NSR in the 70's. No arrhythmias. Echo report reviewed from 10/04/24: Normal LVEF 55 to 60%. LV systolic function is normal. No wall motion abnormalities. RV is normal in size. Moderate to severe mitral annular calcification. Trace MR. Bubble study is negative for kzhqa-vu-[id number] shunt. Medications Administered Current Inpatient Medications Acetaminophen (Acetaminophen 325 Mg Tab) 650 mg PO Q4H PRN PRN Reason: Pain or Fever Stop: 11/03/24 02:04 Last Admin: 10/04/24 14:34 Dose: 650 mg Albuterol (Albuterol Hfa 8 Gm Inhaler) 2 puffs INH QID PRN PRN Reason: Shortness Of Breath Or Wheezin Stop: 11/03/24 02:04 Amlodipine Besylate (Amlodipine Besylate 5 Mg Tab) 10 mg PO DAILY [facility] Stop: 11/03/24 08:59 Last Admin: 10/05/24 08:50 Dose: 10 mg Aspirin (Aspirin 81 Mg Ectab) 81 mg PO DAILY [facility] Stop: 11/03/24 08:59 Last Admin: 10/05/24 08:50 Dose: 81 mg Atorvastatin Calcium (Atorvastatin 40 Mg Tab) 80 mg PO DAILY [facility] Stop: 11/04/24 08:59 Last Admin: 10/05/24 08:45 Dose: 80 mg Clopidogrel Bisulfate (Clopidogrel Bisulfate 75 Mg Tab) 75 mg PO QAM [facility] Stop: 11/03/24 10:59 Last Admin: 10/05/24 08:49 Dose: 75 mg Fexofenadine HCl (Fexofenadine Hcl 180 Mg Tab) 180 mg PO DAILY [facility] Stop: 11/03/24 08:59 Last Admin: 10/05/24 08:52 Dose: Not Given Folic Acid (Folic Acid 1 Mg Tab) 1 mg PO QAM [facility] Stop: 11/03/24 08:59 Last Admin: 10/05/24 08:48 Dose: 1 mg Gabapentin (Gabapentin 600 Mg Tab) 600 mg PO Q8H [facility] Stop: 10/05/24 14:01 Last Admin: 10/05/24 05:35 Dose: 600 mg Gabapentin (Gabapentin 600 Mg Tab) 600 mg PO Q12H [facility] Stop: 10/06/24 12:01 Gabapentin (Gabapentin 600 Mg Tab) 600 mg PO Q24H [facility] Stop: 10/07/24 12:01 Labetalol HCl (Labetalol Hcl Iv 5 Mg/Ml 20ml) 10 mg IV Q4H PRN PRN Reason: Hypertension Stop: 11/03/24 02:04 Lorazepam (Lorazepam 2 Mg/1 Ml Vial) 1 mg IV UD PRN; Protocol PRN Reason: EtOH Withdrawal AWSS Score 6,7 Stop: 11/03/24 02:04 Lorazepam (Lorazepam 2 Mg/1 Ml Vial) 2 mg IV UD PRN; Protocol PRN Reason: EtOH Withdrawal AWSS Score 8,9 Stop: 11/03/24 02:04 Lorazepam (Lorazepam 2 Mg/1 Ml Vial) 3 mg IV ONCE PRN; Protocol PRN Reason: EtOH Withdrawal AWSS Score 10+ Losartan Potassium (Losartan Potassium 25 Mg Tab) 25 mg PO HS [facility] Stop: 11/03/24 20:59 Last Admin: 10/04/24 20:30 Dose: 25 mg Metoprolol Succinate (Metoprolol Succ 25mg Ext Rel Tab) 25 mg PO DAILY [facility] Stop: 11/03/24 08:59 Last Admin: 10/05/24 08:49 Dose: 25 mg Miscellaneous Information (Pharmacist Discharge Med Rec Consult) 1 each N/A UD PRN PRN Reason: Consult Stop: 11/03/24 02:04 Multivitamins (Multivitamin Tab) 1 tab PO QAM [facility] Stop: 11/03/24 08:59 Last Admin: 10/05/24 08:49 Dose: 1 tab Nitroglycerin (Nitroglycerin Sl 0.4 Mg/Tab Tab) 0.4 mg SL Q5M PRN PRN Reason: Chest Pain Stop: 11/03/24 02:04 Pantoprazole Sodium (Pantoprazole 40 Mg Tab) 40 mg PO DAILYBB [facility] Stop: 11/03/24 06:29 Last Admin: 10/05/24 05:35 Dose: 40 mg Polyethylene Glycol (Polyethylene (Miralax) 17 Gm Pack) 17 gm PO DAILY PRN PRN Reason: Constipation Stop: 11/03/24 02:04 Thiamine HCl (Thiamine Hcl 100 Mg Tab) 100 mg PO QAM [facility] Stop: 11/03/24 08:59 Last Admin: 10/05/24 08:50 Dose: 100 mg (1) CRAO (central retinal artery occlusion) Laterality: left Qualified Code(s): H34.12 - Central retinal artery occlus ion, left eye
[2024-10-05 12:20] VITALS: BP 134/79
[2024-10-06] MEDS ORDERED: GABAPENTIN 600 MG TAB PO SCH
[2024-10-07] MEDS ORDERED: GABAPENTIN 600 MG TAB PO SCH (12:00)
--- NOTE | 2024-10-07 14:41 | Pharmacy Report ---
Pharmacist Stroke Counseling - Date of Service October 07, 2024 - Scope: Pharmacy has been consulted to provide medication discharge counseling for this patient admitted with [ischemic stroke] [hemorrhagic stroke] [transient ischemic attack] as per the Pharmacist Discharge Counseling for Stroke Patients Pro tocol. - Medications on Discharge: Home Medications Medication Instructions Recorded Confirmed albuterol sulfate 90 mcg/actuation 2 puff inhalation QID PRN 10/03/24 10/03/24 aerosol inhaler Shortness Of Breath Or Wheezing amlodipine 10 mg tablet 10 mg PO DAILY 10/03/24 10/03/24 aspirin 81 mg tablet,delayed 81 mg PO DAILY 10/03/24 10/03/24 release metoprolol succinate 25 mg 25 mg PO DAILY 10/03/24 10/03/24 tablet,extended release 24 hr omega 3-ytt-dlh-fish oil 1,200 mg 1 cap PO BID 10/03/24 10/03/24 (144 mg-216 mg) capsule (Fish Oil) etanercept 50 mg/mL (1 mL) 50 mg subcut WK 10/04/24 10/04/24 subcutaneous syringe (Enbrel) fexofenadine 180 mg tablet 180 mg PO DAILY 10/04/24 10/04/24 Medication Instructions Recorded atorvastatin 80 mg tablet 80 mg PO DAILY #30 tabs 10/05/24 clopidogrel 75 mg tablet 75 mg PO QAM 19 days #19 tabs 10/05/24 famotidine 20 mg tablet 20 mg PO DAILY #20 tabs 10/05/24 folic acid 1 mg tablet 1 mg PO QAM 30 days #30 tabs 10/05/24 gabapentin 600 mg tablet 600 mg PO UD #6 tabs 10/05/24 losartan 25 mg tablet 25 mg PO HS #30 tabs 10/05/24 multivitamin with folic acid 400 1 tab PO QAM 30 days #30 tabs 10/05/24 mcg tablet (Daily-Leilani (with folic acid)) nitroglycerin 0.4 mg sublingual 0.4 mg sublingual UD PRN chest 10/05/24 tablet (Nitrostat) pain #20 tabs thiamine HCl (vitamin B1) 100 mg 100 mg PO QAM 30 days #30 tabs 10/05/24 tablet - Action: The above medications, specifically ones for stroke treatment/prophylaxis, have been reviewed in detail with the patient and/or patient sales account representative(s) prior to discharge. This includes indication, common adverse reactions, drug interactions, and medication administration. Medication counseling has been employed using the teach-back method to ensure understanding. - Outcome: The patient and/or patient sales account representative(s) have demonstrated understanding of the medications. Additional comments: Was able to talk with patient about new medications on discharge. He reports he saw his PCP provider this morning and was able to review list with them. He reports he let his PCP know that some of the medications were prescribed less than 30 days supply and they are aware. Patient is aware he is to contact his PCP moving forward for any new refill requests on medications. Patient demonstrated understanding of medications. No questions/concerns at this time. Thank you for allowing pharmacy to be involved in the care of this patient. Please call [phone] with any additional questions
== END 2024-10-05 13:31 | disposition home or self-care (01) | DRG 125 ==
LOC: ED 20:42 → 2S 10-04 00:57
DX: H34.12 Central retinal artery occlusion, left eye; M06.9 Rheumatoid arthritis, unspecified; R73.03 Prediabetes; K21.9 Gastro-esophageal reflux disease without esophagitis; R79.89 Other specified abnormal findings of blood chemistry; Z79.899 Other long term (current) drug therapy; Z79.620 Long term (current) use of immunosuppressive biologic; Z82.49 Family history of ischemic heart disease and other diseases of the circulatory system; F10.20 Alcohol dependence, uncomplicated; Z87.891 Personal history of nicotine dependence; Z79.82 Long term (current) use of aspirin; E78.5 Hyperlipidemia, unspecified; I10 Essential (primary) hypertension